=== PATIENT | female | born 1960 | race Caucasian/White ===

== ENCOUNTER 2016-07-14 11:55 | Inpatient (IN) ==
[2016-07-14] MEDS ORDERED: 0.9 % Sodium Chloride 1,000 ML ONE (12:12)
[2016-07-14] MEDS ORDERED: 0.9 % Sodium Chloride 1,000 ML IVC ONE ×2 (12:15→19:37)
[2016-07-14 13:14] LABS: Hematocrit 42.5 % (35.3-44.9); Hemoglobin 13.8 g/dL (11.5-15.4); Immature Granulocytes % 0.6 % (0-4); Lymphocytes % 21.4 %; Mean Corpuscular HGB Conc 32.5 g/dL (31.6-35.5); Mean Corpuscular Hemoglobin 29.1 pg (28.0-33.3); Mean Corpuscular Volume 89.5 fL (83.0-100.0); Mean Platelet Volume 9.6 fL (9.4-12.4); Monocytes % 13.1 %; Platelet Count 318 K/mcL (140-400); Red Blood Count 4.75 M/mcL (3.82-4.97); Red Cell Distribution Width 13.2 % (11.5-14.5); Segmented Neutrophils % 64.2 %
[2016-07-14 13:15] LABS: Basophils # 0.1 K/mcL (0.0-0.2); Basophils % 0.5 %; Eosinophils % 0.2 %; Monocytes # 3.1 K/mcL (0.0-1.3)
--- NOTE | 2016-07-14 13:17 | Emergency Department Note ---
Disposition Clinical Impression: Weakness, Bradycardia UTI (urinary tract infection) Qualifiers: Urinary tract infection type: acute cystitis Hematuria presence: without hematuria Qualified Code(s): N30.00 - Acute cystitis without hematuria Disposition: Admitted As Inpatient Condition: Fair Referrals: Geena Pedersen MD [Primary Care Provider] - Time of Disposition: 15:34 General Adult HPI - General Chief complaint: ED Weakness Stated complaint: weakness Source: patient, EMS Limitations: no limitations Nursing Notes Reviewed: Yes Vital Signs Reviewed: Yes - History of Present Illness HPI Narrative: 55-year-old comes in complaining of generalized weakness difficulty getting around. Family member states that the symptoms began 2 days ago. This morning she had an episode where she became unresponsive on the toilet he picked her up and she seemed to stricter muscles and arched her back. Patient does not localize weakness to one side or the other she's also very dizzy. Onset (ago): day(s) (2) Location: other (Generalized) Pain Scale: 0 Associated symptoms: Reports: weakness (Generalized) - Related Data Home Medications Medication Instructions Recorded Confirmed Albuterol Sulfate [Proair 2 puff IH QID 10/12/14 07/27/15 Respiclick] Aspirin 81 mg PO DAILY 10/12/14 07/27/15 Budesonide/Formoterol 160/4.5 2 puff IH BIDR 10/12/14 07/27/15 [Symbicort] Cetirizine HCl [Zyrtec] 10 mg PO DAILY 10/12/14 07/27/15 ClonazePAM [Klonopin] 0.5 mg PO TID 10/12/14 07/27/15 Colestipol HCl [Colestid] 1 gm PO TID 10/12/14 07/27/15 Diltiazem CD (24hr) [Cardizem CD] 120 mg PO DAILY 10/12/14 07/27/15 Gabapentin [Neurontin] 900 mg PO TID 10/12/14 07/27/15 Isosorbide MONOnitrate (24 HR) 30 mg PO DAILY 10/12/14 07/27/15 [Imdur] Ketotifen Fumarate [Zaditor] 1 drop OP BID PRN 10/12/14 07/27/15 Mirtazapine [Remeron] 30 mg PO HS 10/12/14 07/27/15 Montelukast [Singulair] 10 mg PO DAILY 10/12/14 07/27/15 Omeprazole [PriLOSEC] 20 mg PO BIDAC 10/12/14 07/27/15 Ondansetron [Zofran] 8 mg PO Q8H PRN 10/12/14 07/27/15 Oxygen 2 l NS DAILY 10/12/14 07/27/15 Quetiapine Fumarate [Seroquel] 300 mg PO HS 10/12/14 07/27/15 Rosuvastatin [Crestor] 40 mg PO HS 10/12/14 07/27/15 Sucralfate [Carafate] 1 gm PO BID 10/12/14 07/27/15 Zolpidem [Ambien] 10 mg PO HS 10/12/14 07/27/15 Albuterol Neb [Proventil Neb] 2.5 mg IH Q4HR 07/27/15 07/27/15 Ergocalciferol (VITAMIN D2) 2,000 unit PO DAILY 07/27/15 07/27/15 [Vitamin D2] Tizanidine HCl [Zanaflex] 8 mg PO QID 07/27/15 07/27/15 Previous Rx's Medication Instructions Recorded Nicotine Patch [Nicoderm] 14 mg TD DAILY #30 patch.td24 07/27/15 Amoxicillin 500 mg PO BID 7 Days 11/12/15 HYDROcodone/Acet 5/325 mg [[place] 1 tab PO Q6H #6 tab 11/30/15 5-325 mg] Allergies Allergy/AdvReac Type Severity Reaction Status Date / Time baclofen Allergy Irritable Verified 11/12/15 19:40 escitalopram [From Lexapro] Allergy See Verified 11/12/15 19:40 Comments fluoxetine [From Prozac] Allergy Itching Verified 11/12/15 19:40 Sulfa (Sulfonamide Allergy See Verified 11/12/15 19:40 Antibiotics) Comments tramadol [From Ultram] Allergy Seizure Verified 11/12/15 19:41 trazodone Allergy Irritable Verified 11/12/15 19:40 venlafaxine [From Effexor] Allergy See Verified 11/12/15 19:40 Comments Constitutional: Denies: fever, chills, weakness, weight change Eyes: Denies: eye pain, eye discharge, vision change ENT ED: Denies: ear pain, throat pain, dental pain, hearing loss, epistaxis, congestion, dysphagia Cardiovascular: Denies: chest pain, palpitations, dyspnea on exertion, edema, syncope Respiratory: Denies: cough, dyspnea, wheezes, hemoptysis, stridor Gastrointestinal: Denies: abdominal pain, nausea, vomiting, diarrhea, constipation, hematemesis, melena, hematochezia Genitourinary: Denies: dysuria, frequency, hematuria, discharge Musculoskeletal: Denies: back pain, neck pain, arthralgia, myalgia Integumentary: Denies: rash, abrasion, lesions Neurological: Reports: weakness (Generalized). Denies: headache, numbness, paresthesias, confusion, abnormal gait, vertigo Psychiatric: Denies: anxiety, depression, suicidal thoughts, homicidal thoughts , auditory hallucinations, visual hallucinations Endocrine: Reports: fatigue Hematological/Lymphatic: Denies: easy bleeding, easy bruising Allergic/Immunologic: Denies: facial swelling, urticaria Past Medical History - Past Medical History Medical history: Reports: COPD, coronary artery disease, GERD, hyperlipidemia, migraine, seizures, TIA Surgical history: Reports: appendectomy, cholecystectomy, orthopedic, other Psychiatric history: Reports: anxiety, depression EXECUTIVE ACCOUNT MANAGER history: Reports: no EXECUTIVE ACCOUNT MANAGER history - Social History Smoking Status: Current every day smoker Smokeless Tobacco Status: No Alcohol use: Reports: none Drug use: Reports: none Physical Exam - General Limitations: no limitations General appearance: alert, in no apparent distress - Head Head exam: atraumatic, normocephalic, normal inspection - Eye Eye exam: Present: normal appearance, PERRL, EOMI - ENT ENT exam: normal exam, normal oropharynx, mucous membranes moist - Neck Neck exam: Present: normal inspection, full ROM, trachea midline - Chest Chest inspection: Present: normal inspection, symmetric chest wall rise - Respiratory Respiratory exam: Present: normal lung sounds bilaterally - Cardiovascular Cardiovascular exam: Present: regular rate, bradycardia - Abdominal Exam Abdominal exam: Present: soft, Non-Tender. Absent: tenderness, distention, guarding, rebound, rigidity - Extremities Exam Extremities exam: Present: normal inspection, full ROM. Absent: tenderness, pedal edema - Expanded Lower Extremity Exam Neurovascular/Tendon exam: Absent: motor deficit, sensory deficit, tendon deficit Gait: observed and normal - Back Exam Back exam: Present: normal inspection, full ROM. Absent: tenderness - Neurological Exam Neurological exam: Present: alert, oriented X3 - Psychiatric Psychiatric exam: Present: normal affect, normal mood - Skin Skin exam: Present: warm, dry, intact, normal color Course - Reevaluation(s) Reevaluation #1: 55-year-old had a period of weakness generally that started the last day or 2. Patient had an episode on the toilet today which she arched her back him tensed her muscles family states that she wasn't responsive at that time she has had evaluation by neurology who feels she may be having a seizure. We did get a reevaluation and gave her fluids. The patient improved after fluids although her heart rate remained in the mid 40s blood pressure was okay. White count 23.4 some clear Zaida related to a UTI that she has a versus emargination secondary to seizure. He admitted for further evaluation. Time: 15:33 - Consultations Consultation #1: Discussed with , admit. Time: 15:34 Vital Signs Temperature 97.5 F L 07/14/16 12:00 Pulse Rate 45 07/14/16 12:00 Respiratory Rate 14 07/14/16 12:00 Blood Pressure 97/62 07/14/16 12:00 O2 Sat by Pulse Oximetry 95 07/14/16 12:00 Temperature 97.5 F L 07/14/16 12:00 Pulse Rate 47 07/14/16 12:51 Respiratory Rate 14 07/14/16 12:51 Blood Pressure 93/47 07/14/16 12:51 O2 Sat by Pulse Oximetry 96 07/14/16 12:51 Oxygen Delivery Oxygen Delivery Room Air Medical Decision Making - Lab Data Lab results reviewed: Yes I reviewed the patient's lab results. Result diagrams: 07/14/16 13:06 07/14/16 13:06 Lab Results 07/14/16 07/14/16 07/14/16 Range/Units 12:04 13:06 13:06 WBC 23.4 H (4.3-11.1) K/mcL RBC 4.75 (3.82-4.97) M/mcL Hgb 13.8 (11.5-15.4) g/dL Hct 42.5 (35.3-44.9) % MCV 89.5 (83.0-100.0) fL MCH 29.1 (28.0-33.3) pg MCHC 32.5 (31.6-35.5) g/dL RDW 13.2 (11.5-14.5) % Plt Count 318 (140-400) K/mcL MPV 9.6 (9.4-12.4) fL Immature Gran % 0.6 (0-4) % Seg Neutrophils % 64.2 % Lymphocytes % 21.4 % Monocytes % 13.1 % Eosinophils % 0.2 % Basophils % 0.5 % Neutrophils # 15.0 H (1.6-8.9) K/mcL Lymphocytes # 5.0 H (0.6-4.6) K/mcL Monocytes # 3.1 H (0.0-1.3) K/mcL Eosinophils # 0.0 (0.0-0.6) K/mcL Basophils # 0.1 (0.0-0.2) K/mcL PT 16.8 H (9.4-12.1) Seconds INR 1.5 APTT (26.0-36.0) Seconds Sodium (136-145) mEq/L Potassium (3.5-4.5) mEq/L Chloride (98-109) mEq/L Carbon Dioxide (19-29) mEq/L BUN (7-20) mg/dL Creatinine (0.57-1.11) mg/dL Est GFR ( Amer) (> 60) Est GFR (Non-Af Amer) (> 60) BUN/Creatinine Ratio (6-26) Glucose (70-99) mg/dL POC Glucose 170 H (58-89) Calculated Osmolality (280-300) Calcium (8.6-10.8) mg/dL Total Bilirubin (0.2-1.2) mg/dL Direct Bilirubin (0.0-0.5) mg/dL Indirect Bilirubin (0.0-1.2) mg/dL AST (5-34) Units/L ALT (0-55) Units/L Alkaline Phosphatase (38-126) Units/L Ammonia (18-72) mcmol/L Troponin I (0-0.03) ng/mL Serum Total Protein (6.0-8.3) g/dL Albumin (3.5-5.0) g/dL Globulin (2.4-3.5) g/dL Albumin/Globulin Ratio (1.1-2.2) Amylase (25-125) Units/L Lipase (8-78) Units/L TSH (0.350-4.840) mcIU/mL Ur Specimen Adequacy Urine Color (Yellow) Urine Clarity (Clear) Urine pH (5.0-8.0) pH Units Ur Specific [place] (1.010-1.025) Urine Protein (Neg-Trace) mg/dL Urine Glucose (UA) (Normal) mg/dL Urine Ketones (Negative) mg/dL Urine Blood (Negative) Urine Nitrite (Negative) Urine Bilirubin (Negative) Urine Urobilinogen (Normal) mg/dL Ur Leukocyte Esterase (Negative) Urine Microscopic RBC (0-3) per hpf Urine Microscopic WBC (0-3) per hpf Ur Squamous Epith Cells (None-Few) per lpf Urine Bacteria (None-Few) per hpf Hyaline Casts (None-Few) per lpf Ur Culture Indicated? (NO) Urine Opiates Screen (Sxunad=828) ng/mL Ur Barbiturates Screen (Odgccb=932) ng/mL Ur Phencyclidine Scrn (Cutoff=25) ng/mL Ur Amphetamines Screen (Fvtctr=3130) ng/mL U Benzodiazepines Scrn (Avyhbb=327) ng/mL Urine Cocaine Screen (Cutoff= 300) ng/mL U Marijuana (THC) Screen (Cutoff = 50) ng/mL Ethyl Alcohol (0-10) mg/dL 07/14/16 07/14/16 07/14/16 Range/Units 13:06 13:06 13:06 WBC (4.3-11.1) K/mcL RBC (3.82-4.97) M/mcL Hgb (11.5-15.4) g/dL Hct (35.3-44.9) % MCV (83.0-100.0) fL MCH (28.0-33.3) pg MCHC (31.6-35.5) g/dL RDW (11.5-14.5) % Plt Count (140-400) K/mcL MPV (9.4-12.4) fL Immature Gran % (0-4) % Seg Neutrophils % % Lymphocytes % % Monocytes % % Eosinophils % % Basophils % % Neutrophils # (1.6-8.9) K/mcL Lymphocytes # (0.6-4.6) K/mcL Monocytes # (0.0-1.3) K/mcL Eosinophils # (0.0-0.6) K/mcL Basophils # (0.0-0.2) K/mcL PT (9.4-12.1) Seconds INR APTT 32.8 (26.0-36.0) Seconds Sodium 135 L (136-145) mEq/L Potassium 3.6 (3.5-4.5) mEq/L Chloride 101 (98-109) mEq/L Carbon Dioxide 23 (19-29) mEq/L BUN 9 (7-20) mg/dL Creatinine 1.03 (0.57-1.11) mg/dL Est GFR ( Amer) > 60 (> 60) Est GFR (Non-Af Amer) 56 L (> 60) BUN/Creatinine Ratio 9 (6-26) Glucose 176 H (70-99) mg/dL POC Glucose (58-89) Calculated Osmolality 283 (280-300) Calcium 9.7 (8.6-10.8) mg/dL Total Bilirubin 0.6 (0.2-1.2) mg/dL Direct Bilirubin (0.0-0.5) mg/dL Indirect Bilirubin (0.0-1.2) mg/dL AST 10 (5-34) Units/L ALT 8 (0-55) Units/L Alkaline Phosphatase 47 (38-126) Units/L Ammonia (18-72) mcmol/L Troponin I 0.01 (0-0.03) ng/mL Serum Total Protein 8.2 (6.0-8.3) g/dL Albumin 3.1 L (3.5-5.0) g/dL Globulin 5.1 H (2.4-3.5) g/dL Albumin/Globulin Ratio 0.6 L (1.1-2.2) Amylase (25-125) Units/L Lipase (8-78) Units/L TSH 0.827 (0.350-4.840) mcIU/mL Ur Specimen Adequacy Urine Color (Yellow) Urine Clarity (Clear) Urine pH (5.0-8.0) pH Units Ur Specific [place] (1.010-1.025) Urine Protein (Neg-Trace) mg/dL Urine Glucose (UA) (Normal) mg/dL Urine Ketones (Negative) mg/dL Urine Blood (Negative) Urine Nitrite (Negative) Urine Bilirubin (Negative) Urine Urobilinogen (Normal) mg/dL Ur Leukocyte Esterase (Negative) Urine Microscopic RBC (0-3) per hpf Urine Microscopic WBC (0-3) per hpf Ur Squamous Epith Cells (None-Few) per lpf Urine Bacteria (None-Few) per hpf Hyaline Casts (None-Few) per lpf Ur Culture Indicated? (NO) Urine Opiates Screen (Ryokmi=373) ng/mL Ur Barbiturates Screen (Pthido=318) ng/mL Ur Phencyclidine Scrn (Cutoff=25) ng/mL Ur Amphetamines Screen (Tgdrgn=1024) ng/mL U Benzodiazepines Scrn (Snewgy=427) ng/mL Urine Cocaine Screen (Cutoff= 300) ng/mL U Marijuana (THC) Screen (Cutoff = 50) ng/mL Ethyl Alcohol (0-10) mg/dL 07/14/16 07/14/16 07/14/16 Range/Units 13:33 13:33 14:06 WBC (4.3-11.1) K/mcL RBC (3.82-4.97) M/mcL Hgb (11.5-15.4) g/dL Hct (35.3-44.9) % MCV (83.0-100.0) fL MCH (28.0-33.3) pg MCHC (31.6-35.5) g/dL RDW (11.5-14.5) % Plt Count (140-400) K/mcL MPV (9.4-12.4) fL Immature Gran % (0-4) % Seg Neutrophils % % Lymphocytes % % Monocytes % % Eosinophils % % Basophils % % Neutrophils # (1.6-8.9) K/mcL Lymphocytes # (0.6-4.6) K/mcL Monocytes # (0.0-1.3) K/mcL Eosinophils # (0.0-0.6) K/mcL Basophils # (0.0-0.2) K/mcL PT (9.4-12.1) Seconds INR APTT (26.0-36.0) Seconds Sodium (136-145) mEq/L Potassium (3.5-4.5) mEq/L Chloride (98-109) mEq/L Carbon Dioxide (19-29) mEq/L BUN (7-20) mg/dL Creatinine (0.57-1.11) mg/dL Est GFR ( Amer) (> 60) Est GFR (Non-Af Amer) (> 60) BUN/Creatinine Ratio (6-26) Glucose (70-99) mg/dL POC Glucose (58-89) Calculated Osmolality (280-300) Calcium (8.6-10.8) mg/dL Total Bilirubin 0.7 (0.2-1.2) mg/dL Direct Bilirubin 0.2 (0.0-0.5) mg/dL Indirect Bilirubin 0.5 (0.0-1.2) mg/dL AST 11 (5-34) Units/L ALT 9 (0-55) Units/L Alkaline Phosphatase 48 (38-126) Units/L Ammonia 24 (18-72) mcmol/L Troponin I (0-0.03) ng/mL Serum Total Protein 7.9 (6.0-8.3) g/dL Albumin 3.1 L (3.5-5.0) g/dL Globulin 4.8 H (2.4-3.5) g/dL Albumin/Globulin Ratio 0.6 L (1.1-2.2) Amylase 32 (25-125) Units/L Lipase 25 (8-78) Units/L TSH (0.350-4.840) mcIU/mL Ur Specimen Adequacy See below A Urine Color Yellow (Yellow) Urine Clarity Hazy A (Clear) Urine pH 6.0 (5.0-8.0) pH Units Ur Specific [place] 1.008 L (1.010-1.025) Urine Protein 100 H (Neg-Trace) mg/dL Urine Glucose (UA) Normal (Normal) mg/dL Urine Ketones Negative (Negative) mg/dL Urine Blood Moderate H (Negative) Urine Nitrite Positive A (Negative) Urine Bilirubin Negative (Negative) Urine Urobilinogen Normal (Normal) mg/dL Ur Leukocyte Esterase Large H (Negative) Urine Microscopic RBC 0-3 (0-3) per hpf Urine Microscopic WBC 50-100 H (0-3) per hpf Ur Squamous Epith Cells Moderate H (None-Few) per lpf Urine Bacteria Many H (None-Few) per hpf Hyaline Casts None Seen (None-Few) per lpf Ur Culture Indicated? YES A (NO) Urine Opiates Screen (Coykch=470) ng/mL Ur Barbiturates Screen (Dxlfgk=088) ng/mL Ur Phencyclidine Scrn (Cutoff=25) ng/mL Ur Amphetamines Screen (Vxmbhb=5332) ng/mL U Benzodiazepines Scrn (Ixwcob=451) ng/mL Urine Cocaine Screen (Cutoff= 300) ng/mL U Marijuana (THC) Screen (Cutoff = 50) ng/mL Ethyl Alcohol < 10 (0-10) mg/dL 07/14/16 Range/Units 14:06 WBC (4.3-11.1) K/mcL RBC (3.82-4.97) M/mcL Hgb (11.5-15.4) g/dL Hct (35.3-44.9) % MCV (83.0-100.0) fL MCH (28.0-33.3) pg MCHC (31.6-35.5) g/dL RDW (11.5-14.5) % Plt Count (140-400) K/mcL MPV (9.4-12.4) fL Immature Gran % (0-4) % Seg Neutrophils % % Lymphocytes % % Monocytes % % Eosinophils % % Basophils % % Neutrophils # (1.6-8.9) K/mcL Lymphocytes # (0.6-4.6) K/mcL Monocytes # (0.0-1.3) K/mcL Eosinophils # (0.0-0.6) K/mcL Basophils # (0.0-0.2) K/mcL PT (9.4-12.1) Seconds INR APTT (26.0-36.0) Seconds Sodium (136-145) mEq/L Potassium (3.5-4.5) mEq/L Chloride (98-109) mEq/L Carbon Dioxide (19-29) mEq/L BUN (7-20) mg/dL Creatinine (0.57-1.11) mg/dL Est GFR ( Amer) (> 60) Est GFR (Non-Af Amer) (> 60) BUN/Creatinine Ratio (6-26) Glucose (70-99) mg/dL POC Glucose (58-89) Calculated Osmolality (280-300) Calcium (8.6-10.8) mg/dL Total Bilirubin (0.2-1.2) mg/dL Direct Bilirubin (0.0-0.5) mg/dL Indirect Bilirubin (0.0-1.2) mg/dL AST (5-34) Units/L ALT (0-55) Units/L Alkaline Phosphatase (38-126) Units/L Ammonia (18-72) mcmol/L Troponin I (0-0.03) ng/mL Serum Total Protein (6.0-8.3) g/dL Albumin (3.5-5.0) g/dL Globulin (2.4-3.5) g/dL Albumin/Globulin Ratio (1.1-2.2) Amylase (25-125) Units/L Lipase (8-78) Units/L TSH (0.350-4.840) mcIU/mL Ur Specimen Adequacy Urine Color (Yellow) Urine Clarity (Clear) Urine pH (5.0-8.0) pH Units Ur Specific [place] (1.010-1.025) Urine Protein (Neg-Trace) mg/dL Urine Glucose (UA) (Normal) mg/dL Urine Ketones (Negative) mg/dL Urine Blood (Negative) Urine Nitrite (Negative) Urine Bilirubin (Negative) Urine Urobilinogen (Normal) mg/dL Ur Leukocyte Esterase (Negative) Urine Microscopic RBC (0-3) per hpf Urine Microscopic WBC (0-3) per hpf Ur Squamous Epith Cells (None-Few) per lpf Urine Bacteria (None-Few) per hpf Hyaline Casts (None-Few) per lpf Ur Culture Indicated? (NO) Urine Opiates Screen Negative (Ccqdbz=632) ng/mL Ur Barbiturates Screen Negative (Ceoaaz=357) ng/mL Ur Phencyclidine Scrn Negative (Cutoff=25) ng/mL Ur Amphetamines Screen Negative (Tgvgbu=8180) ng/mL U Benzodiazepines Scrn Negative (Pmmtrb=040) ng/mL Urine Cocaine Screen Negative (Cutoff= 300) ng/mL U Marijuana (THC) Screen Negative (Cutoff = 50) ng/mL Ethyl Alcohol (0-10) mg/dL - Radiology Data Radiology results reviewed: Yes I reviewed the patient's radiology results. Chest X-Ray 07/14/16 12:15 IMPRESSION: 1. No acute cardiopulmonary findings. 2. 1.3 cm nodular opacity in medial right lung base likely corresponds to calcification anterior to the heart seen on the prior CT. D/ / Alicia Bearden MD / Alicia Bearden MD Interpreting Provider: Alicia Bearden MD Head CT 07/14/16 12:16 IMPRESSION: No acute intracranial abnormality. D/ / John Landis MD / John Landis MD Interpreting Provider: John Landis MD Stroke Scale - Level of Consciousness LOC: Alert - LOC Questions LOC Questions: Answers both correctly - LOC Commands LOC Commands: Performs both correctly - Best Gaze Best Gaze: Normal - Visual Visual: No visual loss - Facial Palsy Facial Palsy: Normal - Motor Arms Motor Arm-Left: No drift for 10 seconds Motor Arm-Right: No drift for 10 seconds - Motor Legs Motor Leg-Left: No drift for 5 seconds Motor Leg-Right: No drift for 5 seconds - Limb Ataxia Limb Ataxia: Normal, No Ataxia - Sensory Sensory: Normal - Best Language Best Language: No aphasia - Dysarthria Dysarthria: Normal - Extinction and Inattention Extinction and Inattention: Normal - NIHSS Total Score NIHSS Total Score: 0
[2016-07-14 13:22] LABS: INR 1.5; Prothrombin Time 16.8 Seconds (9.4-12.1)
[2016-07-14 13:28] LABS: Alanine Aminotransferase 8 Units/L (0-55); Albumin 3.1 g/dL (3.5-5.0); Albumin/Globulin Ratio 0.6 (1.1-2.2); Alkaline Phosphatase 47 Units/L (38-126); Aspartate Amino Transferase 10 Units/L (5-34); BUN/Creatinine Ratio 9 (6-26); Bilirubin,Total 0.6 mg/dL (0.2-1.2); Blood Urea Nitrogen 9 mg/dL (7-20); Calcium 9.7 mg/dL (8.6-10.8); Carbon Dioxide 23 mEq/L (19-29); Chloride 101 mEq/L (98-109); Globulin 5.1 g/dL (2.4-3.5); Glucose 176 mg/dL (70-99); Osmolality,Calculated 283 (280-300); Potassium 3.6 mEq/L (3.5-4.5); Sodium 135 mEq/L (136-145); Total Protein 8.2 g/dL (6.0-8.3); eGFR For African Americans > 60 (> 60); eGFR For Non-African Americans 56 (> 60)
[2016-07-14 13:50] LABS: Thyroid Stimulating Hormone 0.827 mcIU/mL (0.350-4.840)
[2016-07-14 13:58] LABS: Alanine Aminotransferase 9 Units/L (0-55); Albumin 3.1 g/dL (3.5-5.0); Albumin/Globulin Ratio 0.6 (1.1-2.2); Alkaline Phosphatase 48 Units/L (38-126); Amylase 32 Units/L (25-125); Aspartate Amino Transferase 11 Units/L (5-34); Bilirubin,Direct 0.2 mg/dL (0.0-0.5); Bilirubin,Indirect 0.5 mg/dL (0.0-1.2); Bilirubin,Total 0.7 mg/dL (0.2-1.2); Globulin 4.8 g/dL (2.4-3.5); Lipase 25 Units/L (8-78); Total Protein 7.9 g/dL (6.0-8.3)
[2016-07-14 14:12] LABS: Ethanol < 10 mg/dL (0-10)
[2016-07-14 14:18] LABS: Bilirubin,Urine Negative (Negative); Blood,Urine Moderate (Negative); Color,Urine Yellow (Yellow); Glucose,Urine (UA) Normal (Normal); Ketones,Urine Negative (Negative); Leukocyte Esterase,Urine Large (Negative); Nitrite,Urine Positive (Negative); Protein,Urine 100 mg/dL (Neg-Trace); Specific Gravity,Urine 1.008 (1.010-1.025); Urobilinogen,Urine Normal (Normal)
[2016-07-14 14:23] LABS: Amphetamine Screen,Urine Negative ng/mL (Cutoff=1000); Bacteria,Urine Many per hpf (None-Few); Barbiturate Screen,Urine Negative ng/mL (Cutoff=200); Benzodiazepines Screen,Urine Negative ng/mL (Cutoff=200); Cannabinoid Screen,Urine Negative ng/mL (Cutoff = 50); Cocaine Screen,Urine Negative ng/mL (Cutoff= 300); Hyaline Casts,Urine None Seen per lpf (None-Few); Opiate Screen,Urine Negative ng/mL (Cutoff=300); Phencyclidine Screen,Urine Negative ng/mL (Cutoff=25); RBC,Urine 0-3 per hpf (0-3); Squamous Epithelial Cell,Urine Moderate per lpf (None-Few); WBC,Urine 50-100 per hpf (0-3)
[2016-07-14 14:24] LABS: Clarity,Urine Hazy (Clear)
[2016-07-14] MEDS: 0.9 % Sodium Chloride 1,000 ML IVC SCH (16:12)
[2016-07-14] MEDS ORDERED: Naloxone 0.4 MG/ML INJ IVP PRN (17:26)
--- NOTE | 2016-07-14 17:29 | Electrocardiograph Report ---
[place] [address] Test Date: 2016-07-14 Pat Name: Geetha Daniels Department: 104 Room: 2NE22 Gender: F Promotional Demonstrator: SERAFIN : 1960 Requested By: González Muñoz Order Number: [id number] Reading MD: Mindi Leggett Measurements Intervals [place] Rate: 43 P: 61 [place]: 109 QRS: 38 QRSD: 78 T: 57 QT: 461 QTc: 409 Interpretive Statements SINUS BRADYCARDIA WITH SHORT [place] INTERVAL NONSPECIFIC T-WAVE ABNORMALITY Electronically Signed On 07-14-2016 17:27:24 EDT by Mindi Leggett
[2016-07-14] MEDS ORDERED: clonazePAM 0.5 MG TABLET PO PRN (17:30)
[2016-07-14] MEDS ORDERED: NON-FORMULARY MEDICATION 1 EACH EACH (Oxygen [Oxygen] 2 L) NS SCH (17:30)
--- NOTE | 2016-07-14 18:17 | Internal Med History&Physical ---
Date of Encounter: 07/16/16 Time of Encounter: 18:14 Assessment and Plan (1) UTI (urinary tract infection) Current visit: Yes Status: Acute History of urinary tract infection multiple times in the past. Present admission is likely for the acute urinary tract infection. Previous admission in July 2015 for urinary tract infection: Escherichia coli: Pansensitive strain Plan: Admit as inpatient. IV fluids 100 mL/h. Intravenous ceftriaxone 1 g every 24 hours Urine culture/blood culture prior to antibiotics. Close monitoring Qualifiers: Urinary tract infection type: acute cystitis Hematuria presence: without hematuria Qualified Code(s): N30.00 - Acute cystitis without hematuria (2) COPD (chronic obstructive pulmonary disease) Current visit: No Status: Acute Stable COPD and has a follow-up with the pulmonology Qualifiers: COPD type: unspecified COPD Qualified Code(s): J44.9 - Chronic obstructive pulmonary disease, unspecified (3) Hypertension Current visit: No Status: Acute At this point patient is hypotensive and we will hold all antihypertensive medication. Qualifiers: Hypertension type: essential hypertension Qualified Code(s): I10 - Essential (primary) hypertension (4) CAD (coronary artery disease) Current visit: No Status: Chronic Will resume home medication Qualifiers: Coronary Disease-Associated Artery/Lesion type: [place] artery [place] vs. transplanted heart: [place] heart Associated angina: without angina Qualified Code(s): I25.10 - Atherosclerotic heart disease of [place] coronary artery without angina pectoris (5) Bradycardia Current visit: Yes Status: Acute Close observation (6) DVT prophylaxis Current visit: Yes Status: Acute Heparin Medical decision making: This patient has moderate to severe risk of worsening in spite of being on appropriate medication due to underlying illness. Internal Medicine - H&P: HPI Chief complaint: fall Admitted From: Emergency Dept Plans for Post Hospital Care: Home History of present illness: PCP : Geena Pandey PMH: COPD,GERD, Anxiety, HPI: Patient is ongoing dysuria, burning sensation, difficulty in micturition and worsening flank pain for more than 3 days. Patient claims that she had multiple falls since yesterday. Patient had a fall this morning. Patient denies chest pain, shortness of breath, abdominal distention, abdominal pain or diarrhea. Patient was brought to the emergency room in view of the frequent falls. Emergency room workup: Patient was evaluated in the emergency room. CT scan of the head was done which was negative for any acute event. Reason for admission: Frequent falls likely secondary to sepsis. Source of sepsis: Possible urinary tract Family history: Noncontributory Past Med Surg Social Fam HX - Past Medical History Medical history: COPD, coronary artery disease, GERD, hyperlipidemia, migraine, seizures, TIA Psychiatric history: anxiety, depression - Past Surgical History Surgical History: appendectomy, cholecystectomy, orthopedic, other - Social History Smoking Status: Current every day smoker Smokeless Tobacco Status: No Alcohol use: none Drug use: none - Family History Mother Living Status: Hx Family Cardiac Disorders: Yes Internal Medicine - H&P: Meds Budesonide/Formoterol 160/4.5 [Symbicort] 2 puff IH BIDR 10/12/14 [History] Cetirizine HCl [Zyrtec] 10 mg PO DAILY 10/12/14 [History] ClonazePAM [Klonopin] 0.5 mg PO Q6H PRN 10/12/14 [History] Diltiazem CD (24hr) [Cardizem CD] 120 mg PO DAILY 10/12/14 [History] Gabapentin [Neurontin] 900 mg PO TID 10/12/14 [History] Montelukast [Singulair] 10 mg PO DAILY 10/12/14 [History] Oxygen 2 l NS AD 10/12/14 [History] Rosuvastatin [Crestor] 40 mg PO HS 10/12/14 [History] Zolpidem [Ambien] 10 mg PO HS 10/12/14 [History] Albuterol Neb [Proventil Neb] 2.5 mg IH Q4HR PRN 07/27/15 [History] Tizanidine HCl [Zanaflex] 8 mg PO QID 07/27/15 [History] Albuterol Sulfate [Ventolin Hfa] 2 puff IH Q4H PRN 07/14/16 [History] Dicyclomine [Bentyl] 10 mg PO TIDAC 07/14/16 [History] Mirtazapine [Remeron] 45 mg PO HS 07/14/16 [History] Ondansetron [Zofran ODT] 8 mg SL Q8H PRN 07/14/16 [History] Quetiapine Fumarate [Seroquel] 400 mg PO HS 07/14/16 [History] Tiotropium [place] [Spiriva Respimat] 2 puff IH DAILY 07/14/16 [History] Allergies baclofen Allergy (Verified 11/12/15 19:40) Irritable escitalopram [From Lexapro] Allergy (Verified 11/12/15 19:40) See Comments suicidal fluoxetine [From Prozac] Allergy (Verified 11/12/15 19:40) Itching Sulfa (Sulfonamide Antibiotics) Allergy (Verified 11/12/15 19:40) See Comments shortness of breath tramadol [From Ultram] Allergy (Verified 11/12/15 19:41) Seizure trazodone Allergy (Verified 11/12/15 19:40) Irritable venlafaxine [From Effexor] Allergy (Verified 11/12/15 19:40) See Comments suicidal All Systems PM: A 10-system review of systems was performed and is negative for pertinent findings except as documented above in the HPI. - Constitutional Constitutional: no chills, no fever(s), no night sweats - EENT Eyes: no change in vision, no discharge, no pain, no photophobia Ears: no ear discharge, no ear pain, no tinnitus Nose, mouth and throat: no dysphagia, no nasal discharge, no neck pain, no sore throat - Cardiovascular Cardiovascular ROS IM: no chest pain, no diaphoresis, no dyspnea, no lightheadedness, no palpitations, no syncope - Respiratory Respiratory: no cough, no dyspnea, no wheezing, no excessive phlegm production - Gastrointestinal Gastrointestinal: no abdominal pain, no diarrhea, no hematemesis, no hematochezia, no melena, no nausea, no vomiting - Genitourinary Genitourinary: no change in urinary stream, no dysuria, no flank pain, no hematuria - Musculoskeletal Musculoskeletal ROS IM: no numbness, no tingling - Integumentary Integumentary IM: no rash, no unusual bruising - Neurological Neurological ROS: no confusion, no convulsions, no focal weakness, no numbness, no tingling, no tremor(s) - Hematologic/Lymphatic Hematologic/Lymphatic: no easy bruising - Constitutional Vitals: Temp Pulse Resp BP Pulse Ox 97.5 F L 44 16 107/58 96 07/14/16 12:00 07/14/16 16:00 07/14/16 17:25 07/14/16 17:25 07/14/16 16:00 General appearance: Present: A&O X 3, pleasant, no acute distress, answers questions appropriately - Head Head exam: Present: atraumatic, normocephalic - Eye Eye exam: Present: PERRL, conjuntiva pink, sclera anicteric Pupils: Present: PERRL - Neck Neck exam general surgery: Present: supple, trachea midline. Absent: lymphadenopathy - Respiratory Respiratory exam: Present: CTAB. Absent: accessory muscle use, rales, rhonchi, wheezes - Cardiovascular Cardiovascular exam: Present: RRR, +S1, +S2. Absent: diastolic murmur, gallop, rubs, systolic murmur - GI/Abdominal GI/Abdominal exam: Present: normal bowel sounds, soft, no peritoneal signs. Absent: distended, tenderness - Extremities Exam Extremities exam: Present: warm, radial pulses palpable and symetrical. Absent : calf tenderness, cyanotic, pedal edema - Neurological Exam Neurological exam: Present: CN II-XII intact, oriented X3, no focal deficits. Absent: pronater drift, facial droop, speech deficit - Skin Skin exam: Present: dry, intact Internal Med - H&P Results - Labs CBC & Chem 7: 07/16/16 04:30 07/16/16 04:30
[2016-07-14] MEDS ORDERED: 0.9 % Sodium Chloride 500 ML IVC ONE (19:13)
[2016-07-14] MEDS: *HR* Heparin 5,000 UNIT/ML VIAL SQ SCH (19:40)
[2016-07-14] MEDS: Budesonide/Formoterol 160/4.5 MDI IH SCH (20:27)
[2016-07-14] MEDS: Mirtazapine 15 MG TABLET PO SCH (22:02)
[2016-07-14] MEDS: Gabapentin 300 MG CAPSULE PO SCH (22:02)
[2016-07-14] MEDS: tiZANidine 4 MG TABLET PO SCH (22:03)
[2016-07-15 01:44] LABS: Basophils # 0.1 K/mcL (0.0-0.2); Basophils % 0.4 %; Eosinophils # 0.1 K/mcL (0.0-0.6); Eosinophils % 0.8 %; Hematocrit 34.9 % (35.3-44.9); Immature Granulocytes % 0.4 % (0-4); Lymphocytes # 3.9 K/mcL (0.6-4.6); Lymphocytes % 28.6 %; Mean Corpuscular HGB Conc 31.8 g/dL (31.6-35.5); Mean Corpuscular Hemoglobin 29.1 pg (28.0-33.3); Mean Corpuscular Volume 91.6 fL (83.0-100.0); Mean Platelet Volume 10.1 fL (9.4-12.4); Monocytes # 1.3 K/mcL (0.0-1.3); Monocytes % 9.6 %; Neutrophils # 8.3 K/mcL (1.6-8.9); Platelet Count 240 K/mcL (140-400); Red Blood Count 3.81 M/mcL (3.82-4.97); Red Cell Distribution Width 13.5 % (11.5-14.5); Segmented Neutrophils % 60.2 %
[2016-07-15 01:45] LABS: Hemoglobin 11.1 g/dL (11.5-15.4)
[2016-07-15 02:05] LABS: Alanine Aminotransferase 7 Units/L (0-55); Albumin 2.6 g/dL (3.5-5.0); Albumin/Globulin Ratio 0.7 (1.1-2.2); Alkaline Phosphatase 39 Units/L (38-126); Aspartate Amino Transferase 12 Units/L (5-34); BUN/Creatinine Ratio 11 (6-26); Bilirubin,Total 0.4 mg/dL (0.2-1.2); Blood Urea Nitrogen 11 mg/dL (7-20); Carbon Dioxide 20 mEq/L (19-29); Chloride 111 mEq/L (98-109); Chol/HDL Ratio 14.9 (0-4.9); Cholesterol 119 mg/dL (< 200); Globulin 3.9 g/dL (2.4-3.5); Glucose 137 mg/dL (70-99); HDL Cholesterol 8 mg/dL (40-59); LDL Cholesterol,Calculated 45 mg/dL (0-99); Magnesium 1.9 mg/dL (1.6-2.6); Osmolality,Calculated 292 (280-300); Phosphorous 2.5 mg/dL (2.3-4.7); Potassium 3.1 mEq/L (3.5-4.5); Sodium 140 mEq/L (136-145); Triglycerides 328 mg/dL (< 150); eGFR For African Americans > 60 (> 60); eGFR For Non-African Americans 58 (> 60)
[2016-07-15 02:13] LABS: Calcium 7.9 mg/dL (8.6-10.8); Total Protein 6.5 g/dL (6.0-8.3)
[2016-07-15] MEDS: 0.9 % Sodium Chloride 1,000 ML IVC SCH ×4 (04:04→16:56)
[2016-07-15] MEDS: Acetaminophen 325 MG TABLET PO PRN ×2 (04:08→20:43)
[2016-07-15] MEDS: *HR* Heparin 5,000 UNIT/ML VIAL SQ SCH ×2 (04:08→16:56)
--- NOTE | 2016-07-15 05:47 | Event Note ---
Date of Encounter: 07/15/16 Time of Encounter: 05:41 At approximately 8PM I was notified by nursing staff of the patients blood pressure being low with MAPs in the 50s. I examined the patient and she was alert and oriented and having good urine output. Patient was given throughout the night with a total of 5Ls given. Patients blood pressure did not respond initially to fluid challenges but by the time she had received 5L her blood pressure responded appropriately. I was then alerted by nursing that the patient was having difficulty urinating so a bladder scan was performed which showed approximately 500cc of urine in the bladder so an order for a gaston catheter was placed.
[2016-07-15] MEDS: Diltiazem CD (24hr) 120 MG CAPSULE PO SCH (08:27)
[2016-07-15] MEDS: Gabapentin 300 MG CAPSULE PO SCH ×3 (08:28→22:21)
[2016-07-15] MEDS: tiZANidine 4 MG TABLET PO SCH ×4 (08:28→22:21)
[2016-07-15] MEDS: Budesonide/Formoterol 160/4.5 MDI IH SCH ×2 (10:04→22:13)
[2016-07-15] MEDS: Tiotropium 18 MCG inhalation IH SCH (10:05)
--- NOTE | 2016-07-15 16:34 | Internal Med Progress Note ---
Date of Encounter: 07/15/16 Time of Encounter: 16:30 - Assessment and plan (1) UTI (urinary tract infection) Current Visit: Yes Status: Acute Assessment and plan: History of urinary tract infection multiple times in the past. Present admission is likely for the acute urinary tract infection. Previous admission in July 2015 for urinary tract infection: Escherichia coli: Pansensitive strain Plan: Admit as inpatient. IV fluids 100 mL/h. Intravenous ceftriaxone 1 g every 24 hours Urine culture/blood culture prior to antibiotics. Close monitoring 07/15/2016 Urine culture : GNR on Ceftrixone Day 2 will continue same. close follow up Qualifiers: Urinary tract infection type: acute cystitis Hematuria presence: without hematuria Qualified Code(s): N30.00 - Acute cystitis without hematuria (2) COPD (chronic obstructive pulmonary disease) Current Visit: No Status: Acute Assessment and plan: stable COPD Qualifiers: COPD type: unspecified COPD Qualified Code(s): J44.9 - Chronic obstructive pulmonary disease, unspecified (3) Hypertension Current Visit: No Status: Acute Assessment and plan: well-controlled Qualifiers: Hypertension type: essential hypertension Qualified Code(s): I10 - Essential (primary) hypertension (4) CAD (coronary artery disease) Current Visit: No Status: Chronic Assessment and plan: denies chest pain Qualifiers: Coronary Disease-Associated Artery/Lesion type: [place] artery [place] vs. transplanted heart: [place] heart Associated angina: without angina Qualified Code(s): I25.10 - Atherosclerotic heart disease of [place] coronary artery without angina pectoris (5) Bradycardia Current Visit: Yes Status: Acute Assessment and plan: on BB (6) DVT prophylaxis Current Visit: Yes Status: Acute Assessment and plan: heparin - Subjective Interval history: patient seen and examined. Chart reviewed. patient denies abdominal pain, dysuria,increased frequency or vomiting - Constitutional Vitals: Temp Pulse Resp BP Pulse Ox 97.9 F 56 18 94/57 92 07/15/16 15:38 07/15/16 15:38 07/15/16 15:38 07/15/16 15:38 07/15/16 15:38 General appearance: Present: A&O X 3, pleasant, no acute distress, answers questions appropriately - Head Head exam: Present: atraumatic, normocephalic - Eye Eye exam: Present: PERRL, conjuntiva pink, sclera anicteric Pupils: Present: PERRL - Neck Neck exam general surgery: Present: supple, trachea midline. Absent: lymphadenopathy - Respiratory Respiratory exam: Present: CTAB. Absent: accessory muscle use, rales, rhonchi, wheezes - Cardiovascular Cardiovascular exam: Present: RRR, +S1, +S2. Absent: diastolic murmur, gallop, rubs, systolic murmur - GI/Abdominal GI/Abdominal exam: Present: normal bowel sounds, soft, no peritoneal signs. Absent: distended, tenderness - Extremities Exam Extremities exam: Present: warm, radial pulses palpable and symetrical. Absent : calf tenderness, cyanotic, pedal edema - Neurological Exam Neurological exam: Present: CN II-XII intact, oriented X3, no focal deficits. Absent: pronater drift, facial droop, speech deficit - Skin Skin exam: Present: dry, intact Internal Medicine: Result - Labs CBC & Chem 7: 07/15/16 01:10 07/15/16 01:10 - ABG Interpretation ABG results: PT/INR, D-dimer PT 16.8 Seconds (9.4-12.1) H 07/14/16 13:06 Consult Discharge Plan - Plan Additional Instructions: pcp requested Referrals: Geena Pedersen MD [Primary Care Provider] -
[2016-07-15] MEDS: Mirtazapine 15 MG TABLET PO SCH (22:21)
[2016-07-16 04:45] LABS: Basophils % 0.6 %; Eosinophils # 0.2 K/mcL (0.0-0.6); Eosinophils % 2.6 %; Hematocrit 31.7 % (35.3-44.9); Hemoglobin 10.2 g/dL (11.5-15.4); Immature Granulocytes % 0.5 % (0-4); Lymphocytes % 46.5 %; Mean Corpuscular HGB Conc 32.2 g/dL (31.6-35.5); Mean Corpuscular Hemoglobin 29.9 pg (28.0-33.3); Mean Platelet Volume 10.3 fL (9.4-12.4); Monocytes # 0.5 K/mcL (0.0-1.3); Monocytes % 7.4 %; Neutrophils # 2.8 K/mcL (1.6-8.9); Platelet Count 172 K/mcL (140-400); Red Blood Count 3.41 M/mcL (3.82-4.97); Red Cell Distribution Width 13.9 % (11.5-14.5); Segmented Neutrophils % 42.4 %
[2016-07-16 05:06] LABS: BUN/Creatinine Ratio 9 (6-26); Blood Urea Nitrogen 7 mg/dL (7-20); Carbon Dioxide 17 mEq/L (19-29); Chloride 120 mEq/L (98-109); Glucose 94 mg/dL (70-99); Osmolality,Calculated 302 (280-300); Potassium 2.9 mEq/L (3.5-4.5); Sodium 147 mEq/L (136-145); eGFR For African Americans > 60 (> 60); eGFR For Non-African Americans > 60 (> 60)
[2016-07-16] MEDS: Albuterol 2.5 MG/3 ML NEBULIZER IH PRN (06:10)
[2016-07-16] MEDS: *HR* Heparin 5,000 UNIT/ML VIAL SQ SCH ×2 (06:12→17:02)
[2016-07-16] MEDS: Budesonide/Formoterol 160/4.5 MDI IH SCH ×2 (07:48→21:56)
[2016-07-16] MEDS: Tiotropium 18 MCG inhalation IH SCH (07:48)
[2016-07-16] MEDS: tiZANidine 4 MG TABLET PO SCH (07:49)
[2016-07-16] MEDS: Diltiazem CD (24hr) 120 MG CAPSULE PO SCH (07:50)
[2016-07-16] MEDS: Gabapentin 300 MG CAPSULE PO SCH ×3 (07:50→21:26)
[2016-07-16] MEDS ORDERED: Potassium Chloride Elixir 20 MEQ/15 ML UDC PO ONE (11:12)
[2016-07-16] MEDS ORDERED: tiZANidine 4 MG TABLET PO PRN (11:14)
[2016-07-16] MEDS: 0.9 % Sodium Chloride 1,000 ML IVC SCH ×2 (12:30→23:32)
--- NOTE | 2016-07-16 14:13 | Internal Med Progress Note ---
Date of Encounter: 07/16/16 Time of Encounter: 14:11 - Assessment and plan (1) UTI (urinary tract infection) Current Visit: Yes Status: Acute Assessment and plan: History of urinary tract infection multiple times in the past. Present admission is likely for the acute urinary tract infection. Previous admission in July 2015 for urinary tract infection: Escherichia coli: Pansensitive strain Plan: Admit as inpatient. IV fluids 100 mL/h. Intravenous ceftriaxone 1 g every 24 hours Urine culture/blood culture prior to antibiotics. Close monitoring 07/15/2016 Urine culture : GNR on Ceftrixone Day 2 will continue same. close follow up 07/16/2016 Urine culture: Gram-negative [place]: Escherichia coli: Resistant to ceftriaxone The Escherichia coli is a sensitive to rest all antibiotics except ceftriaxone. We will change from ceftriaxone to ciprofloxacin 500 mg twice a day. Qualifiers: Urinary tract infection type: acute cystitis Hematuria presence: without hematuria Qualified Code(s): N30.00 - Acute cystitis without hematuria (2) Hypokalemia Current Visit: No Status: Acute Assessment and plan: Potassium is 2.9. We will replace potassium intravenously. Possible home tomorrow. (3) COPD (chronic obstructive pulmonary disease) Current Visit: No Status: Acute Assessment and plan: stable COPD Qualifiers: COPD type: unspecified COPD Qualified Code(s): J44.9 - Chronic obstructive pulmonary disease, unspecified (4) Hypertension Current Visit: No Status: Acute Assessment and plan: well-controlled Qualifiers: Hypertension type: essential hypertension Qualified Code(s): I10 - Essential (primary) hypertension (5) CAD (coronary artery disease) Current Visit: No Status: Chronic Assessment and plan: denies chest pain Qualifiers: Coronary Disease-Associated Artery/Lesion type: [place] artery [place] vs. transplanted heart: [place] heart Associated angina: without angina Qualified Code(s): I25.10 - Atherosclerotic heart disease of [place] coronary artery without angina pectoris (6) Bradycardia Current Visit: Yes Status: Acute Assessment and plan: Bradycardia resolved (7) DVT prophylaxis Current Visit: Yes Status: Acute Assessment and plan: heparin - Subjective Interval history: patient seen and examined. Chart reviewed. patient denies abdominal pain, dysuria,increased frequency or vomiting 07/16/2016 Patient seen and examined. Chart reviewed. Patient feels much better as compared to yesterday. Patient denies abdominal pain, dysuria, increased frequency or vomiting - Constitutional Vitals: Temp Pulse Resp BP Pulse Ox 98.4 F 81 15 103/62 94 07/16/16 11:33 07/16/16 11:33 07/16/16 11:33 07/16/16 11:33 07/16/16 11:33 General appearance: Present: A&O X 3, pleasant, no acute distress, answers questions appropriately - Head Head exam: Present: atraumatic, normocephalic - Eye Eye exam: Present: PERRL, conjuntiva pink, sclera anicteric Pupils: Present: PERRL - Neck Neck exam general surgery: Present: supple, trachea midline. Absent: lymphadenopathy - Respiratory Respiratory exam: Present: CTAB. Absent: accessory muscle use, rales, rhonchi, wheezes - Cardiovascular Cardiovascular exam: Present: RRR, +S1, +S2. Absent: diastolic murmur, gallop, rubs, systolic murmur - GI/Abdominal GI/Abdominal exam: Present: normal bowel sounds, soft, no peritoneal signs. Absent: distended, tenderness - Extremities Exam Extremities exam: Present: warm, radial pulses palpable and symetrical. Absent : calf tenderness, cyanotic, pedal edema - Neurological Exam Neurological exam: Present: CN II-XII intact, oriented X3, no focal deficits. Absent: pronater drift, facial droop, speech deficit - Skin Skin exam: Present: dry, intact Internal Medicine: Result - Labs CBC & Chem 7: 07/16/16 04:30 07/16/16 04:30 Labs: Short CBC 07/16/16 Range/Units 04:30 WBC 6.5 D (4.3-11.1) K/mcL Hgb 10.2 L (11.5-15.4) g/dL Hct 31.7 L (35.3-44.9) % Plt Count 172 (140-400) K/mcL Neutrophils # 2.8 (1.6-8.9) K/mcL BMP 07/16/16 04:30 Sodium 147 H Potassium 2.9 L Chloride 120 H Carbon Dioxide 17 L BUN 7 Creatinine 0.80 Glucose 94 Calcium 8.0 L - ABG Interpretation ABG results: PT/INR, D-dimer PT 16.8 Seconds (9.4-12.1) H 05/23/17 13:06 Consult Discharge Plan - Plan Additional Instructions: pcp requested Referrals: Geena Pedersen MD [Primary Care Provider] -
[2016-07-16] MEDS: Acetaminophen 325 MG TABLET PO PRN (15:06)
[2016-07-16] MEDS: Mirtazapine 15 MG TABLET PO SCH (21:25)
[2016-07-17] MEDS: *HR* Heparin 5,000 UNIT/ML VIAL SQ SCH ×2 (05:28→18:24)
[2016-07-17] MEDS: Tiotropium 18 MCG inhalation IH SCH (08:01)
[2016-07-17] MEDS: Budesonide/Formoterol 160/4.5 MDI IH SCH ×2 (08:01→20:30)
[2016-07-17] MEDS: Gabapentin 300 MG CAPSULE PO SCH ×3 (10:01→21:18)
[2016-07-17] MEDS: Diltiazem CD (24hr) 120 MG CAPSULE PO SCH (10:03)
--- NOTE | 2016-07-17 13:32 | Internal Med Progress Note ---
Date of Encounter: 07/17/16 Time of Encounter: 13:31 - Assessment and plan (1) UTI (urinary tract infection) Current Visit: Yes Status: Acute Assessment and plan: History of urinary tract infection multiple times in the past. Present admission is likely for the acute urinary tract infection. Previous admission in July 2015 for urinary tract infection: Escherichia coli: Pansensitive strain Plan: Admit as inpatient. IV fluids 100 mL/h. Intravenous ceftriaxone 1 g every 24 hours Urine culture/blood culture prior to antibiotics. Close monitoring 07/15/2016 Urine culture : GNR on Ceftrixone Day 2 will continue same. close follow up 07/16/2016 Urine culture: Gram-negative [place]: Escherichia coli: Resistant to ceftriaxone The Escherichia coli is a sensitive to rest all antibiotics except ceftriaxone. We will change from ceftriaxone to ciprofloxacin 500 mg twice a day. 07/17/2016 Patient still has occasional dysuria. Noted that she has recurrent urinary tract infection. We will get CT abdomen and pelvis with oral and IV contrast. Possible home in next 1-2 days Qualifiers: Urinary tract infection type: acute cystitis Hematuria presence: without hematuria Qualified Code(s): N30.00 - Acute cystitis without hematuria (2) COPD (chronic obstructive pulmonary disease) Current Visit: No Status: Acute Assessment and plan: stable COPD Qualifiers: COPD type: unspecified COPD Qualified Code(s): J44.9 - Chronic obstructive pulmonary disease, unspecified (3) Hypertension Current Visit: No Status: Acute Assessment and plan: well-controlled Qualifiers: Hypertension type: essential hypertension Qualified Code(s): I10 - Essential (primary) hypertension (4) CAD (coronary artery disease) Current Visit: No Status: Chronic Assessment and plan: denies chest pain Qualifiers: Coronary Disease-Associated Artery/Lesion type: [place] artery [place] vs. transplanted heart: [place] heart Associated angina: without angina Qualified Code(s): I25.10 - Atherosclerotic heart disease of [place] coronary artery without angina pectoris (5) Bradycardia Current Visit: Yes Status: Acute Assessment and plan: Bradycardia resolved (6) DVT prophylaxis Current Visit: Yes Status: Acute Assessment and plan: heparin - Subjective Interval history: patient seen and examined. Chart reviewed. patient denies abdominal pain, dysuria,increased frequency or vomiting 07/16/2016 Patient seen and examined. Chart reviewed. Patient feels much better as compared to yesterday. Patient denies abdominal pain, dysuria, increased frequency or vomiting 07/17/2016 Patient seen and examined. Chart reviewed. Patient feels much better as compared to yesterday. Patient denies abdominal pain, nausea or vomiting, - Constitutional Vitals: Temp Pulse Resp BP Pulse Ox 99 F 94 18 156/75 93 07/17/16 11:33 07/17/16 11:33 07/17/16 06:48 07/17/16 11:33 07/17/16 06:48 General appearance: Present: A&O X 3, pleasant, no acute distress, answers questions appropriately - Head Head exam: Present: atraumatic, normocephalic - Eye Eye exam: Present: PERRL, conjuntiva pink, sclera anicteric Pupils: Present: PERRL - Neck Neck exam general surgery: Present: supple, trachea midline. Absent: lymphadenopathy - Respiratory Respiratory exam: Present: CTAB. Absent: accessory muscle use, rales, rhonchi, wheezes - Cardiovascular Cardiovascular exam: Present: RRR, +S1, +S2. Absent: diastolic murmur, gallop, rubs, systolic murmur - GI/Abdominal GI/Abdominal exam: Present: normal bowel sounds, soft, no peritoneal signs. Absent: distended, tenderness - Extremities Exam Extremities exam: Present: warm, radial pulses palpable and symetrical. Absent : calf tenderness, cyanotic, pedal edema - Neurological Exam Neurological exam: Present: CN II-XII intact, oriented X3, no focal deficits. Absent: pronater drift, facial droop, speech deficit - Skin Skin exam: Present: dry, intact Internal Medicine: Result - Labs CBC & Chem 7: 07/16/16 04:30 07/16/16 04:30 - ABG Interpretation ABG results: PT/INR, D-dimer PT 16.8 Seconds (9.4-12.1) H 07/14/16 13:06 Consult Discharge Plan - Plan Additional Instructions: pcp requested Referrals: Geena Pedersen MD [Primary Care Provider] -
[2016-07-17] MEDS: *HR* Morphine 2 MG/ML SYRINGE IVP PRN ×2 (15:35→21:10)
[2016-07-17] MEDS: Mirtazapine 15 MG TABLET PO SCH (21:08)
[2016-07-18 04:40] LABS: Basophils # 0.1 K/mcL (0.0-0.2); Basophils % 0.6 %; Eosinophils # 0.3 K/mcL (0.0-0.6); Eosinophils % 3.5 %; Hematocrit 31.2 % (35.3-44.9); Hemoglobin 9.9 g/dL (11.5-15.4); Immature Granulocytes % 1.2 % (0-4); Lymphocytes # 2.7 K/mcL (0.6-4.6); Mean Corpuscular HGB Conc 31.7 g/dL (31.6-35.5); Mean Corpuscular Hemoglobin 29.1 pg (28.0-33.3); Mean Corpuscular Volume 91.8 fL (83.0-100.0); Mean Platelet Volume 10.4 fL (9.4-12.4); Monocytes # 0.6 K/mcL (0.0-1.3); Monocytes % 6.7 %; Platelet Count 217 K/mcL (140-400); Red Cell Distribution Width 14.3 % (11.5-14.5)
[2016-07-18 05:01] LABS: Alanine Aminotransferase 7 Units/L (0-55); Albumin 2.8 g/dL (3.5-5.0); Albumin/Globulin Ratio 0.7 (1.1-2.2); Alkaline Phosphatase 42 Units/L (38-126); Aspartate Amino Transferase 16 Units/L (5-34); BUN/Creatinine Ratio 8 (6-26); Bilirubin,Total 0.5 mg/dL (0.2-1.2); Blood Urea Nitrogen 7 mg/dL (7-20); Calcium 8.6 mg/dL (8.6-10.8); Carbon Dioxide 21 mEq/L (19-29); Chloride 113 mEq/L (98-109); Glucose 96 mg/dL (70-99); Osmolality,Calculated 294 (280-300); Potassium 3.2 mEq/L (3.5-4.5); Sodium 143 mEq/L (136-145); Total Protein 6.8 g/dL (6.0-8.3); eGFR For African Americans > 60 (> 60); eGFR For Non-African Americans > 60 (> 60)
[2016-07-18] MEDS: *HR* Heparin 5,000 UNIT/ML VIAL SQ SCH (06:00)
[2016-07-18] MEDS: Budesonide/Formoterol 160/4.5 MDI IH SCH ×2 (08:08→20:30)
[2016-07-18] MEDS: Tiotropium 18 MCG inhalation IH SCH (08:08)
[2016-07-18] MEDS: Diltiazem CD (24hr) 120 MG CAPSULE PO SCH (09:18)
[2016-07-18] MEDS: Gabapentin 300 MG CAPSULE PO SCH ×3 (09:18→20:50)
[2016-07-18] MEDS: *HR* Morphine 2 MG/ML SYRINGE IVP PRN ×5 (09:21→23:00)
[2016-07-18] MEDS ORDERED: Potassium Chloride Elixir 20 MEQ/15 ML UDC PO ONE (10:17)
--- NOTE | 2016-07-18 10:19 | Internal Med Progress Note ---
Date of Encounter: 07/18/16 Time of Encounter: 10:15 - Assessment and plan (1) Anemia Current Visit: Yes Status: Acute Assessment and plan: Noted that patient has a drop in hemoglobin from 13.8-9.9 Plan: Stop S/C heparin SCD IV PPI 40 mg twice a day. Stool occult blood. If stool occult blood is positive then we will get an endoscopy team to do EGD. Qualifiers: Anemia type: unspecified type Qualified Code(s): D64.9 - Anemia, unspecified (2) UTI (urinary tract infection) Current Visit: Yes Status: Acute Assessment and plan: History of urinary tract infection multiple times in the past. Present admission is likely for the acute urinary tract infection. Previous admission in July 2015 for urinary tract infection: Escherichia coli: Pansensitive strain Plan: Admit as inpatient. IV fluids 100 mL/h. Intravenous ceftriaxone 1 g every 24 hours Urine culture/blood culture prior to antibiotics. Close monitoring 07/15/2016 Urine culture : GNR on Ceftrixone Day 2 will continue same. close follow up 07/16/2016 Urine culture: Gram-negative lucila: Escherichia coli: Resistant to ceftriaxone The Escherichia coli is a sensitive to rest all antibiotics except ceftriaxone. We will change from ceftriaxone to ciprofloxacin 500 mg twice a day. 07/17/2016 Patient still has occasional dysuria. Noted that she has recurrent urinary tract infection. We will get CT abdomen and pelvis with oral and IV contrast. Possible home in next 1-2 days 07/18/2016 Still has occasional dysuria. CT abdomen and pelvis: No evidence suggestive of a communication between her GI/ tract. We will continue same antibiotics for now. Qualifiers: Urinary tract infection type: acute cystitis Hematuria presence: without hematuria Qualified Code(s): N30.00 - Acute cystitis without hematuria (3) COPD (chronic obstructive pulmonary disease) Current Visit: No Status: Acute Assessment and plan: stable COPD Qualifiers: COPD type: unspecified COPD Qualified Code(s): J44.9 - Chronic obstructive pulmonary disease, unspecified (4) Hypertension Current Visit: No Status: Acute Assessment and plan: well-controlled Qualifiers: Hypertension type: essential hypertension Qualified Code(s): I10 - Essential (primary) hypertension (5) CAD (coronary artery disease) Current Visit: No Status: Chronic Assessment and plan: denies chest pain Qualifiers: Coronary Disease-Associated Artery/Lesion type: [place] artery [place] vs. transplanted heart: [place] heart Associated angina: without angina Qualified Code(s): I25.10 - Atherosclerotic heart disease of [place] coronary artery without angina pectoris (6) Bradycardia Current Visit: Yes Status: Acute Assessment and plan: Bradycardia resolved (7) DVT prophylaxis Current Visit: Yes Status: Acute Assessment and plan: SCD No pharmacological DVT prophylaxis in view of possible GI bleed. Medical decision making: This patient has a moderate to severe risk of worsening in spite of being on appropriate medical treatment due to underlying gastrointestinal issues - Subjective Interval history: patient seen and examined. Chart reviewed. patient denies abdominal pain, dysuria,increased frequency or vomiting 07/16/2016 Patient seen and examined. Chart reviewed. Patient feels much better as compared to yesterday. Patient denies abdominal pain, dysuria, increased frequency or vomiting 07/17/2016 Patient seen and examined. Chart reviewed. Patient feels much better as compared to yesterday. Patient denies abdominal pain, nausea or vomiting, 07/18/2016 Patient seen and examined. Chart reviewed. Patient feels better but still has dysuria. Patient also feels short of breath. - Constitutional Vitals: Temp Pulse Resp BP Pulse Ox 98.9 F 91 16 136/73 91 07/18/16 06:25 07/18/16 06:25 07/18/16 08:09 07/18/16 06:25 07/18/16 08:09 General appearance: Present: A&O X 3, pleasant, no acute distress, answers questions appropriately - Head Head exam: Present: atraumatic, normocephalic - Eye Eye exam: Present: PERRL, conjuntiva pink, sclera anicteric Pupils: Present: PERRL - Neck Neck exam general surgery: Present: supple, trachea midline. Absent: lymphadenopathy - Respiratory Respiratory exam: Present: CTAB. Absent: accessory muscle use, rales, rhonchi, wheezes - Cardiovascular Cardiovascular exam: Present: RRR, +S1, +S2. Absent: diastolic murmur, gallop, rubs, systolic murmur - GI/Abdominal GI/Abdominal exam: Present: normal bowel sounds, soft, no peritoneal signs. Absent: distended, tenderness - Extremities Exam Extremities exam: Present: warm, radial pulses palpable and symetrical. Absent : calf tenderness, cyanotic, pedal edema - Neurological Exam Neurological exam: Present: CN II-XII intact, oriented X3, no focal deficits. Absent: pronater drift, facial droop, speech deficit - Skin Skin exam: Present: dry, intact Internal Medicine: Result - Labs CBC & Chem 7: 07/18/16 03:23 07/18/16 03:23 Labs: Short CBC 07/18/16 Range/Units 03:23 WBC 8.7 (4.3-11.1) K/mcL Hgb 9.9 L (11.5-15.4) g/dL Hct 31.2 L (35.3-44.9) % Plt Count 217 (140-400) K/mcL Neutrophils # 5.0 (1.6-8.9) K/mcL BMP 07/18/16 03:23 Sodium 143 Potassium 3.2 L Chloride 113 H Carbon Dioxide 21 BUN 7 Creatinine 0.91 Glucose 96 Calcium 8.6 Liver Function 07/18/16 Range/Units 03:23 Total Bilirubin 0.5 (0.2-1.2) mg/dL AST 16 (5-34) Units/L ALT 7 (0-55) Units/L Alkaline Phosphatase 42 (38-126) Units/L Albumin 2.8 L (3.5-5.0) g/dL - ABG Interpretation ABG results: PT/INR, D-dimer PT 16.8 Seconds (9.4-12.1) H 07/14/16 13:06 - Impressions Impressions Abdomen/Pelvis CT 07/17/16 16:15 IMPRESSION: Abnormal inflammation in the [place] hepatis which may be due firm inflammation of the common duct. Abnormal appearance of the wall of the urinary bladder worrisome for acute cystitis. Small amount of free pelvic fluid. No finding worrisome for colovesical fistula or other significant abnormality. D/ / Gareth Cedeno MD / Gareth Cedeno MD Interpreting Provider: Gareth Cedeno MD - VTE Documentation of Mechanical Device: Graduated compression elastic hosiery Consult Discharge Plan - Plan Additional Instructions: pcp requested Referrals: Geena Pedersen MD [Primary Care Provider] -
[2016-07-18] MEDS: Pantoprazole 40 MG VIAL IVP SCH (18:23)
[2016-07-18] MEDS: Albuterol 2.5 MG/3 ML NEBULIZER IH PRN (20:30)
[2016-07-18] MEDS: Mirtazapine 15 MG TABLET PO SCH (20:50)
[2016-07-19] MEDS: Pantoprazole 40 MG VIAL IVP SCH (05:00)
[2016-07-19 05:36] LABS: Basophils # 0.1 K/mcL (0.0-0.2); Basophils % 0.9 %; Eosinophils # 0.4 K/mcL (0.0-0.6); Eosinophils % 4.8 %; Hematocrit 34.7 % (35.3-44.9); Hemoglobin 10.8 g/dL (11.5-15.4); Immature Granulocytes % 2.2 % (0-4); Immature Platelets 4.3 % (1.1-6.1); Lymphocytes % 37.4 %; Mean Corpuscular HGB Conc 31.1 g/dL (31.6-35.5); Mean Corpuscular Hemoglobin 29.1 pg (28.0-33.3); Mean Corpuscular Volume 93.5 fL (83.0-100.0); Mean Platelet Volume 10.2 fL (9.4-12.4); Monocytes # 0.5 K/mcL (0.0-1.3); Monocytes % 6.7 %; Neutrophils # 3.9 K/mcL (1.6-8.9); Platelet Count 305 K/mcL (140-400); Red Blood Count 3.71 M/mcL (3.82-4.97); Red Cell Distribution Width 14.7 % (11.5-14.5)
[2016-07-19 05:52] LABS: Alanine Aminotransferase 9 Units/L (0-55); Albumin 2.9 g/dL (3.5-5.0); Albumin/Globulin Ratio 0.7 (1.1-2.2); Alkaline Phosphatase 44 Units/L (38-126); Aspartate Amino Transferase 15 Units/L (5-34); BUN/Creatinine Ratio 9 (6-26); Bilirubin,Total 0.3 mg/dL (0.2-1.2); Blood Urea Nitrogen 9 mg/dL (7-20); Calcium 9.1 mg/dL (8.6-10.8); Carbon Dioxide 26 mEq/L (19-29); Chloride 109 mEq/L (98-109); Globulin 4.3 g/dL (2.4-3.5); Glucose 106 mg/dL (70-99); Osmolality,Calculated 293 (280-300); Sodium 142 mEq/L (136-145); Total Protein 7.2 g/dL (6.0-8.3); eGFR For African Americans > 60 (> 60); eGFR For Non-African Americans 58 (> 60)
[2016-07-19 07:36] VITALS: BP 116/77
[2016-07-19] MEDS: Budesonide/Formoterol 160/4.5 MDI IH SCH (08:02)
[2016-07-19] MEDS: Tiotropium 18 MCG inhalation IH SCH (08:02)
[2016-07-19] MEDS: Diltiazem CD (24hr) 120 MG CAPSULE PO SCH (08:50)
[2016-07-19] MEDS: Gabapentin 300 MG CAPSULE PO SCH (08:50)
[2016-07-19] MEDS: *HR* Morphine 2 MG/ML SYRINGE IVP PRN ×2 (08:57→12:23)
--- NOTE | 2016-07-19 12:55 | Discharge Summary ---
Date of Encounter: 07/19/16 Time of Encounter: 12:51 - Discharge Diagnosis (1) UTI (urinary tract infection) Priority: Primary Status: Acute Qualifiers: Urinary tract infection type: acute cystitis Hematuria presence: without hematuria Qualified Code(s): N30.00 - Acute cystitis without hematuria (2) Anemia Priority: Primary Status: Acute Qualifiers: Anemia type: unspecified type Qualified Code(s): D64.9 - Anemia, unspecified (3) COPD (chronic obstructive pulmonary disease) Priority: Secondary Status: Acute Qualifiers: COPD type: unspecified COPD Qualified Code(s): J44.9 - Chronic obstructive pulmonary disease, unspecified (4) Hypertension Priority: Secondary Status: Acute Qualifiers: Hypertension type: essential hypertension Qualified Code(s): I10 - Essential (primary) hypertension (5) CAD (coronary artery disease) Priority: Secondary Status: Chronic Qualifiers: Coronary Disease-Associated Artery/Lesion type: [place] artery [place] vs. transplanted heart: [place] heart Associated angina: without angina Qualified Code(s): I25.10 - Atherosclerotic heart disease of [place] coronary artery without angina pectoris (6) Bradycardia Priority: Secondary Status: Acute (7) DVT prophylaxis Priority: Secondary Status: Acute - Discharge Medications Prescriptions: Ciprofloxacin [Cipro] 500 mg PO BID #10 tablet Home Medications: Budesonide/Formoterol 160/4.5 [Symbicort] 2 puff IH BIDR 10/12/14 [History] Cetirizine HCl [Zyrtec] 10 mg PO DAILY 10/12/14 [History] ClonazePAM [Klonopin] 0.5 mg PO Q6H PRN 10/12/14 [History] Diltiazem CD (24hr) [Cardizem CD] 120 mg PO DAILY 10/12/14 [History] Gabapentin [Neurontin] 900 mg PO TID 10/12/14 [History] Montelukast [Singulair] 10 mg PO DAILY 10/12/14 [History] Oxygen 2 l NS AD 10/12/14 [History] Rosuvastatin [Crestor] 40 mg PO HS 10/12/14 [History] Zolpidem [Ambien] 10 mg PO HS 10/12/14 [History] Albuterol Neb [Proventil Neb] 2.5 mg IH Q4HR PRN 06/04/16 [History] Tizanidine HCl [Zanaflex] 8 mg PO QID 07/27/15 [History] Albuterol Sulfate [Ventolin Hfa] 2 puff IH Q4H PRN 07/14/16 [History] Dicyclomine [Bentyl] 10 mg PO TIDAC 07/14/16 [History] Mirtazapine [Remeron] 45 mg PO HS 07/14/16 [History] Ondansetron [Zofran ODT] 8 mg SL Q8H PRN 07/14/16 [History] Quetiapine Fumarate [Seroquel] 400 mg PO HS 07/14/16 [History] Tiotropium [place] [Spiriva Respimat] 2 puff IH DAILY 07/14/16 [History] Ciprofloxacin [Cipro] 500 mg PO BID #10 tablet 07/19/16 [Rx] Allergies/Adverse Reactions: Allergies baclofen Allergy (Verified 11/12/15 19:40) Irritable escitalopram [From Lexapro] Allergy (Verified 11/12/15 19:40) See Comments suicidal fluoxetine [From Prozac] Allergy (Verified 11/12/15 19:40) Itching Sulfa (Sulfonamide Antibiotics) Allergy (Verified 11/12/15 19:40) See Comments shortness of breath tramadol [From Ultram] Allergy (Verified 11/12/15 19:41) Seizure trazodone Allergy (Verified 11/12/15 19:40) Irritable venlafaxine [From Effexor] Allergy (Verified 11/12/15 19:40) See Comments suicidal Procedures/tests Complete & Pending: Procedures Performed prior 72 hours Category Date Time Status CT abd pelvis w iv and oral [CT] Routine Cat Scan 07/17/16 16:15 Completed Date of admission: 07/15/16 08:06 Primary care physician: Geena Pedersen, Discharging clinician: Baltazar Waggoner - Patient Status Disposition: Home, Self-Care Condition: Fair Functional capacity at discharge: independent ambulation Overall status at discharge: patient is progressing back to baseline - Discharge Instructions Follow Up With: Geena Pedersen MD [Primary Care Provider] - Forms: ED Satisfaction Letter Additional Instructions: pcp requested - Diet and Activity Activity: increase activity as tolerated Diet: low fat, low cholesterol, low salt diet Interval History: PCP : Geena Pandey PMH: COPD,GERD, Anxiety, HPI: Patient is ongoing dysuria, burning sensation, difficulty in micturition and worsening flank pain for more than 3 days. Patient claims that she had multiple falls since yesterday. Patient had a fall this morning. Patient denies chest pain, shortness of breath, abdominal distention, abdominal pain or diarrhea. Patient was brought to the emergency room in view of the frequent falls. Emergency room workup: Patient was evaluated in the emergency room. CT scan of the head was done which was negative for any acute event. Reason for admission: Frequent falls likely secondary to sepsis. Source of sepsis: Possible urinary tract Family history: Noncontributory Hospital course: Patient was hospitalized. She was started on IV antibiotics. Blood culture and urine cultures were sent. Blood culture was negative for growth. Urine culture was positive for Escherichia coli. Patient was initially on ceftriaxone. Noted that Escherichia coli from urine was resistant to ceftriaxone. Ciprofloxacin was started. Patient was hypokalemic. Potassium was replaced. CT scan of the abdomen and pelvis was done. CT scan did not show any abnormality. Plan Patient is keen to go home today. Patient can go home today. We will to total 10 days of ciprofloxacin orally. Follow-up with PCP in 1-2 weeks. All questions answered. At the time of discharge patient does not have any question, concerns, update or recommendations. - Time Spent with Patient Total time spent providing and/or coordinating discharge services: - Constitutional Vitals: Temp Pulse Resp BP Pulse Ox 98.1 F 83 15 116/77 93 07/19/16 07:34 07/19/16 07:34 07/19/16 07:34 07/19/16 07:34 07/19/16 07:34 General appearance: Present: A&O X 3, pleasant, no acute distress, answers questions appropriately - Head Head exam: Present: atraumatic, normocephalic - Eye Eye exam: Present: PERRL, conjuntiva pink, sclera anicteric Pupils: Present: PERRL - Neck Neck exam general surgery: Present: supple, trachea midline. Absent: lymphadenopathy - Respiratory Respiratory exam: Present: CTAB. Absent: accessory muscle use, rales, rhonchi, wheezes - Cardiovascular Cardiovascular exam: Present: RRR, +S1, +S2. Absent: diastolic murmur, gallop, rubs, systolic murmur - GI/Abdominal GI/Abdominal exam: Present: normal bowel sounds, soft, no peritoneal signs. Absent: distended, tenderness - Extremities Exam Extremities exam: Present: warm, radial pulses palpable and symetrical. Absent : calf tenderness, cyanotic, pedal edema - Neurological Exam Neurological exam: Present: CN II-XII intact, oriented X3, no focal deficits. Absent: pronater drift, facial droop, speech deficit - Skin Skin exam: Present: dry, intact - VTE Documentation of Mechanical Device: Graduated compression elastic hosiery
== END 2016-07-19 14:45 | disposition home or self-care (01) | DRG 720 ==
LOC: EMEROO 11:55 → 2NENU 11:55
PROVIDERS: ADMIT Internal Medicine; ATTEND Internal Medicine

== ENCOUNTER 2017-06-18 17:40 | Inpatient (IN) ==
--- NOTE | 2017-06-18 17:59 | Emergency Department Note ---
Disposition Clinical Impression: Hyperglycemia, New onset type 2 diabetes mellitus Nausea & vomiting Qualifiers: Vomiting type: unspecified Vomiting Intractability: non-intractable Qualified Code(s): R11.2 - Nausea with vomiting, unspecified Disposition: Admitted As Inpatient Condition: Fair General Adult HPI - General Chief complaint: ED Nausea/Vomiting/Diarrhea Stated complaint: vomiting,dizzy Time Seen by Provider: 06/18/17 17:58 Source: patient, family Limitations: no limitations - History of Present Illness Pain Scale: 6 - Related Data Home Medications Medication Instructions Recorded Confirmed Cetirizine HCl [Zyrtec] 10 mg PO DAILY 10/12/14 06/18/17 ClonazePAM [Klonopin] 0.5 mg PO Q6H PRN 10/12/14 06/18/17 Gabapentin [Neurontin] 900 mg PO TID 10/12/14 06/18/17 Montelukast [Singulair] 10 mg PO DAILY 10/12/14 06/18/17 Oxygen 2 l NS HS 10/12/14 06/18/17 Rosuvastatin [Crestor] 40 mg PO HS 10/12/14 06/18/17 Zolpidem [Ambien] 10 mg PO HS 10/12/14 06/18/17 Albuterol Neb [Proventil Neb] 2.5 mg IH Q4HR PRN 07/27/15 06/18/17 Tizanidine HCl [Zanaflex] 8 mg PO QID 07/27/15 06/18/17 Albuterol Sulfate [Ventolin Hfa] 2 puff IH Q4H PRN 07/14/16 06/18/17 Mirtazapine [Remeron] 45 mg PO HS 07/14/16 06/18/17 Quetiapine Fumarate [Seroquel] 400 mg PO HS 07/14/16 06/18/17 Tiotropium [place] [Spiriva 2 puff IH DAILY 07/14/16 06/18/17 Respimat] Paroxetine [Paxil] 20 mg PO DAILY 06/18/17 06/18/17 Previous Rx's Medication Instructions Recorded Cefdinir [Omnicef] 300 mg PO BID #8 capsule 06/21/17 Insulin DETEMIR [Levemir] 10 unit SQ HS 30 Days 06/21/17 Insulin LISPRO [HumaLOG] 2 units SQ TIDAC 30 Days vial 06/21/17 Allergies Allergy/AdvReac Type Severity Reaction Status Date / Time baclofen Allergy Irritable Verified 06/18/17 20:20 escitalopram [From Lexapro] Allergy See Verified 06/18/17 20:20 Comments fluoxetine [From Prozac] Allergy Itching Verified 06/18/17 20:20 Sulfa (Sulfonamide Allergy See Verified 06/18/17 20:20 Antibiotics) Comments tramadol [From Ultram] Allergy Seizure Verified 06/18/17 20:20 trazodone Allergy Irritable Verified 06/18/17 20:20 venlafaxine [From Effexor] Allergy See Verified 06/18/17 20:20 Comments Past Medical History - Past Medical History Medical history: Reports: COPD, coronary artery disease, GERD, hyperlipidemia, migraine, seizures, TIA Surgical history: Reports: appendectomy, cholecystectomy, orthopedic, other Psychiatric history: Reports: anxiety, depression RELATIONSHIP ASSOCIATE history: Reports: no RELATIONSHIP ASSOCIATE history - Social History Smoking Status: Current every day smoker Smokeless Tobacco Status: No Alcohol use: Reports: none Drug use: Reports: none Physical Exam - General Limitations: no limitations General appearance: alert, in no apparent distress Course Vital Signs Temperature 97.6 F 06/18/17 17:42 Pulse Rate 103 06/18/17 17:42 Respiratory Rate 18 06/18/17 17:42 Blood Pressure 142/81 06/18/17 17:42 O2 Sat by Pulse Oximetry 94 06/18/17 17:42 Temperature 97.8 F 06/21/17 07:10 Pulse Rate 76 06/21/17 07:10 Respiratory Rate 18 06/21/17 07:10 Blood Pressure 108/71 06/21/17 07:10 O2 Sat by Pulse Oximetry 95 06/21/17 07:10 Oxygen Delivery Oxygen Delivery Room Air Medical Decision Making - Lab Data Result diagrams: 06/21/17 05:20 06/21/17 05:20 Lab Results 06/18/17 06/18/17 06/18/17 Range/Units 18:45 18:55 18:55 WBC 7.0 (4.3-11.1) K/mcL RBC 5.32 H (3.82-4.97) M/mcL Hgb 15.9 H (11.5-15.4) g/dL Hct 46.5 H (35.3-44.9) % MCV 87.4 (83.0-100.0) fL MCH 29.9 (28.0-33.3) pg MCHC 34.2 (31.6-35.5) g/dL RDW 13.3 (11.5-14.5) % Plt Count 176 (140-400) K/mcL MPV 11.1 (9.4-12.4) fL Immature Gran % 0.1 (0-4) % Seg Neutrophils % 55.7 % Lymphocytes % 32.1 % Monocytes % 8.5 % Eosinophils % 2.3 % Basophils % 1.3 % Neutrophils # 3.9 (1.6-8.9) K/mcL Lymphocytes # 2.2 (0.6-4.6) K/mcL Monocytes # 0.6 (0.0-1.3) K/mcL Eosinophils # 0.2 (0.0-0.6) K/mcL Basophils # 0.1 (0.0-0.2) K/mcL Sample Site ABG pH (7.32-7.45) pH Units ABG pCO2 (35-45) mmHg ABG pO2 (85-104) mmHg ABG HCO3 (21-27) mEq/L ABG Total CO2 (20-26) mEq/L ABG O2 Saturation (95-98) % ABG Base Excess (-2 to 3) mEq/L Iain Test Inspired O2 (1-15=lpm [id number]=%) Sodium 113 L* (136-145) mEq/L Potassium 3.8 (3.5-5.1) mEq/L Chloride 72 L (98-107) mEq/L Carbon Dioxide 26 (23-29) mEq/L BUN 10 (6-20) mg/dL Creatinine 1.06 (0.60-1.20) mg/dL Est GFR ( Amer) > 60 (> 60) Est GFR (Non-Af Amer) 54 L (> 60) BUN/Creatinine Ratio 9 (6-26) Glucose 1061 H* (70-105) mg/dL POC Glucose (70-99) mg/dL Calculated Osmolality 289 (280-300) Calcium 10.0 (8.6-10.3) mg/dL Magnesium 2.0 (1.6-2.6) mg/dL Total Bilirubin 1.0 (0.3-1.0) mg/dL AST 47 H (13-39) Units/L ALT 38 (7-52) Units/L Alkaline Phosphatase 85 (34-104) Units/L Serum Total Protein 8.9 (6.4-8.9) g/dL Albumin 4.4 (3.5-5.7) g/dL Globulin 4.5 H (2.4-3.5) g/dL Albumin/Globulin Ratio 1.0 L (1.1-2.2) Lipase 142 H (11-82) Units/L Beta-Hydroxybutyric Acd 1.97 H (0.02-0.27) mmol/L Urine Color (Yellow) Urine Clarity (Clear) Urine pH (5.0-8.0) pH Units Ur Specific [place] (1.010-1.025) Urine Protein (Neg-Trace) mg/dL Urine Glucose (UA) (Normal) mg/dL Urine Ketones (Negative) mg/dL Urine Blood (Negative) Urine Nitrite (Negative) Urine Bilirubin (Negative) Urine Urobilinogen (Normal) mg/dL Ur Leukocyte Esterase (Negative) Ur Culture Indicated? (NO) 06/18/17 06/18/17 06/18/17 Range/Units 19:30 21:03 22:00 WBC (4.3-11.1) K/mcL RBC (3.82-4.97) M/mcL Hgb (11.5-15.4) g/dL Hct (35.3-44.9) % MCV (83.0-100.0) fL MCH (28.0-33.3) pg MCHC (31.6-35.5) g/dL RDW (11.5-14.5) % Plt Count (140-400) K/mcL MPV (9.4-12.4) fL Immature Gran % (0-4) % Seg Neutrophils % % Lymphocytes % % Monocytes % % Eosinophils % % Basophils % % Neutrophils # (1.6-8.9) K/mcL Lymphocytes # (0.6-4.6) K/mcL Monocytes # (0.0-1.3) K/mcL Eosinophils # (0.0-0.6) K/mcL Basophils # (0.0-0.2) K/mcL Sample Site R Radial ABG pH 7.44 (7.32-7.45) pH Units ABG pCO2 38 (35-45) mmHg ABG pO2 65 L (85-104) mmHg ABG HCO3 26 (21-27) mEq/L ABG Total CO2 27 H (20-26) mEq/L ABG O2 Saturation 93 L (95-98) % ABG Base Excess 2 (-2 to 3) mEq/L Iain Test Positive Inspired O2 21.0 (1-15=lpm [id number]=%) Sodium (136-145) mEq/L Potassium (3.5-5.1) mEq/L Chloride (98-107) mEq/L Carbon Dioxide (23-29) mEq/L BUN (6-20) mg/dL Creatinine (0.60-1.20) mg/dL Est GFR ( Amer) (> 60) Est GFR (Non-Af Amer) (> 60) BUN/Creatinine Ratio (6-26) Glucose (70-105) mg/dL POC Glucose 434 H* (70-99) mg/dL Calculated Osmolality (280-300) Calcium (8.6-10.3) mg/dL Magnesium (1.6-2.6) mg/dL Total Bilirubin (0.3-1.0) mg/dL AST (13-39) Units/L ALT (7-52) Units/L Alkaline Phosphatase (34-104) Units/L Serum Total Protein (6.4-8.9) g/dL Albumin (3.5-5.7) g/dL Globulin (2.4-3.5) g/dL Albumin/Globulin Ratio (1.1-2.2) Lipase (11-82) Units/L Beta-Hydroxybutyric Acd (0.02-0.27) mmol/L Urine Color Yellow (Yellow) Urine Clarity Clear (Clear) Urine pH 6.0 (5.0-8.0) pH Units Ur Specific [place] > 1.030 H (1.010-1.025) Urine Protein Negative (Neg-Trace) mg/dL Urine Glucose (UA) >=1000 H (Normal) mg/dL Urine Ketones Trace H (Negative) mg/dL Urine Blood Negative (Negative) Urine Nitrite Negative (Negative) Urine Bilirubin Negative (Negative) Urine Urobilinogen Normal (Normal) mg/dL Ur Leukocyte Esterase Negative (Negative) Ur Culture Indicated? NO (NO) 06/18/17 06/18/17 06/18/17 Range/Units 22:01 22:09 23:03 WBC (4.3-11.1) K/mcL RBC (3.82-4.97) M/mcL Hgb (11.5-15.4) g/dL Hct (35.3-44.9) % MCV (83.0-100.0) fL MCH (28.0-33.3) pg MCHC (31.6-35.5) g/dL RDW (11.5-14.5) % Plt Count (140-400) K/mcL MPV (9.4-12.4) fL Immature Gran % (0-4) % Seg Neutrophils % % Lymphocytes % % Monocytes % % Eosinophils % % Basophils % % Neutrophils # (1.6-8.9) K/mcL Lymphocytes # (0.6-4.6) K/mcL Monocytes # (0.0-1.3) K/mcL Eosinophils # (0.0-0.6) K/mcL Basophils # (0.0-0.2) K/mcL Sample Site ABG pH (7.32-7.45) pH Units ABG pCO2 (35-45) mmHg ABG pO2 (85-104) mmHg ABG HCO3 (21-27) mEq/L ABG Total CO2 (20-26) mEq/L ABG O2 Saturation (95-98) % ABG Base Excess (-2 to 3) mEq/L Iain Test Inspired O2 (1-15=lpm [id number]=%) Sodium 130 L D (136-145) mEq/L Potassium 2.9 L (3.5-5.1) mEq/L Chloride 96 L (98-107) mEq/L Carbon Dioxide 24 (23-29) mEq/L BUN 7 (6-20) mg/dL Creatinine 0.77 (0.60-1.20) mg/dL Est GFR ( Amer) > 60 (> 60) Est GFR (Non-Af Amer) > 60 (> 60) BUN/Creatinine Ratio 9 (6-26) Glucose 396 H (70-105) mg/dL POC Glucose 446 H* 283 H (70-99) mg/dL Calculated Osmolality 285 (280-300) Calcium 8.1 L (8.6-10.3) mg/dL Magnesium (1.6-2.6) mg/dL Total Bilirubin (0.3-1.0) mg/dL AST (13-39) Units/L ALT (7-52) Units/L Alkaline Phosphatase (34-104) Units/L Serum Total Protein (6.4-8.9) g/dL Albumin (3.5-5.7) g/dL Globulin (2.4-3.5) g/dL Albumin/Globulin Ratio (1.1-2.2) Lipase (11-82) Units/L Beta-Hydroxybutyric Acd (0.02-0.27) mmol/L Urine Color (Yellow) Urine Clarity (Clear) Urine pH (5.0-8.0) pH Units Ur Specific [place] (1.010-1.025) Urine Protein (Neg-Trace) mg/dL Urine Glucose (UA) (Normal) mg/dL Urine Ketones (Negative) mg/dL Urine Blood (Negative) Urine Nitrite (Negative) Urine Bilirubin (Negative) Urine Urobilinogen (Normal) mg/dL Ur Leukocyte Esterase (Negative) Ur Culture Indicated? (NO) 06/18/17 06/19/17 Range/Units 23:40 00:29 WBC (4.3-11.1) K/mcL RBC (3.82-4.97) M/mcL Hgb (11.5-15.4) g/dL Hct (35.3-44.9) % MCV (83.0-100.0) fL MCH (28.0-33.3) pg MCHC (31.6-35.5) g/dL RDW (11.5-14.5) % Plt Count (140-400) K/mcL MPV (9.4-12.4) fL Immature Gran % (0-4) % Seg Neutrophils % % Lymphocytes % % Monocytes % % Eosinophils % % Basophils % % Neutrophils # (1.6-8.9) K/mcL Lymphocytes # (0.6-4.6) K/mcL Monocytes # (0.0-1.3) K/mcL Eosinophils # (0.0-0.6) K/mcL Basophils # (0.0-0.2) K/mcL Sample Site ABG pH (7.32-7.45) pH Units ABG pCO2 (35-45) mmHg ABG pO2 (85-104) mmHg ABG HCO3 (21-27) mEq/L ABG Total CO2 (20-26) mEq/L ABG O2 Saturation (95-98) % ABG Base Excess (-2 to 3) mEq/L Iain Test Inspired O2 (1-15=lpm [id number]=%) Sodium (136-145) mEq/L Potassium (3.5-5.1) mEq/L Chloride (98-107) mEq/L Carbon Dioxide (23-29) mEq/L BUN (6-20) mg/dL Creatinine (0.60-1.20) mg/dL Est GFR ( Amer) (> 60) Est GFR (Non-Af Amer) (> 60) BUN/Creatinine Ratio (6-26) Glucose (70-105) mg/dL POC Glucose 223 H 238 H (70-99) mg/dL Calculated Osmolality (280-300) Calcium (8.6-10.3) mg/dL Magnesium (1.6-2.6) mg/dL Total Bilirubin (0.3-1.0) mg/dL AST (13-39) Units/L ALT (7-52) Units/L Alkaline Phosphatase (34-104) Units/L Serum Total Protein (6.4-8.9) g/dL Albumin (3.5-5.7) g/dL Globulin (2.4-3.5) g/dL Albumin/Globulin Ratio (1.1-2.2) Lipase (11-82) Units/L Beta-Hydroxybutyric Acd (0.02-0.27) mmol/L Urine Color (Yellow) Urine Clarity (Clear) Urine pH (5.0-8.0) pH Units Ur Specific [place] (1.010-1.025) Urine Protein (Neg-Trace) mg/dL Urine Glucose (UA) (Normal) mg/dL Urine Ketones (Negative) mg/dL Urine Blood (Negative) Urine Nitrite (Negative) Urine Bilirubin (Negative) Urine Urobilinogen (Normal) mg/dL Ur Leukocyte Esterase (Negative) Ur Culture Indicated? (NO) Critical Care Time Critical Care Time: Yes Total Critical Care Time: 35 Attestation: Critical care performed: Time is exclusive of separately billable procedures. Time includes: direct patient care, patient reassessment, coordination of patient care, interpretation of data (laboratory data, radiology data, and respiratory data), review of patient's medical records, medical consultation and documentation of patient care. Procedures included in critical care time: Procedures excluded from critical care time: Attestation Statement - Attestation Attestation: I examined this patient and my medical decision-making was reviewed with the Resident Physician. I agree with the documented findings, disposition and treatment plan as described except to the extent set forth below. Patient presents to the ED with chief clinic dizziness. Patient describes it as spinning sensation when she stands. She states it starts his nausea. When she stands or moves she gets dizzy and then she vomits. Resolves with rest. She is in no distress on examination. She does have some horizontal nystagmus. Plan. Labs fluids and head CT. She is receiving meclizine and Benadryl. We will reevaluate. Patient hyperglycemic. Pseudohyponatremia. Anion gap is 15. We will start on an insulin drip. Fluids. Potassium. Admit.
--- NOTE | 2017-06-18 18:09 | Emergency Department Note ---
Disposition Clinical Impression: Hyperglycemia, New onset type 2 diabetes mellitus Peripheral vertigo Qualifiers: Laterality: unspecified laterality Qualified Code(s): H81.399 - Other peripheral vertigo, unspecified ear Nausea & vomiting Qualifiers: Vomiting type: unspecified Vomiting Intractability: non-intractable Qualified Code(s): R11.2 - Nausea with vomiting, unspecified Disposition: Admitted As Inpatient Condition: Fair Referrals: Luke Ba DO [Primary Care Provider] - Forms: ED Satisfaction Letter Time of Disposition: 20:26 General Adult HPI - General Chief complaint: ED Nausea/Vomiting/Diarrhea Stated complaint: vomiting,dizzy Time Seen by Provider: 06/18/17 17:58 Source: patient, family Limitations: no limitations Nursing Notes Reviewed: Yes Vital Signs Reviewed: Yes - History of Present Illness HPI Narrative: 6-year-old female complains of acute onset of vertigo symptoms to include room spinning. Patient states that 4 days ago she started having symptoms URI with cough congestion. That night she got up to use the bathroom and became very dizzy. Since then her dizziness has increased to include nausea and vomiting. Symptoms cease when she is not moving. Patient states she has had previous episodes of vertigo in the past, approximately year ago when she was admitted and treated for sepsis. On review of systems patient states she has had hearing loss over the past several months. Pain Scale: 6 - Related Data Home Medications Medication Instructions Recorded Confirmed Cetirizine HCl [Zyrtec] 10 mg PO DAILY 10/12/14 06/18/17 ClonazePAM [Klonopin] 0.5 mg PO Q6H PRN 10/12/14 06/18/17 Gabapentin [Neurontin] 900 mg PO TID 10/12/14 06/18/17 Montelukast [Singulair] 10 mg PO DAILY 10/12/14 06/18/17 Oxygen 2 l NS HS 10/12/14 06/18/17 Rosuvastatin [Crestor] 40 mg PO HS 10/12/14 06/18/17 Zolpidem [Ambien] 10 mg PO HS 10/12/14 06/18/17 Albuterol Neb [Proventil Neb] 2.5 mg IH Q4HR PRN 07/27/15 06/18/17 Tizanidine HCl [Zanaflex] 8 mg PO QID 07/27/15 06/18/17 Albuterol Sulfate [Ventolin Hfa] 2 puff IH Q4H PRN 07/14/16 06/18/17 Mirtazapine [Remeron] 45 mg PO HS 07/14/16 06/18/17 Quetiapine Fumarate [Seroquel] 400 mg PO HS 07/14/16 06/18/17 Tiotropium [place] [Spiriva 2 puff IH DAILY 07/14/16 06/18/17 Respimat] Paroxetine [Paxil] 20 mg PO DAILY 06/18/17 06/18/17 Allergies Allergy/AdvReac Type Severity Reaction Status Date / Time baclofen Allergy Irritable Verified 06/18/17 20:20 escitalopram [From Lexapro] Allergy See Verified 06/18/17 20:20 Comments fluoxetine [From Prozac] Allergy Itching Verified 06/18/17 20:20 Sulfa (Sulfonamide Allergy See Verified 06/18/17 20:20 Antibiotics) Comments tramadol [From Ultram] Allergy Seizure Verified 06/18/17 20:20 trazodone Allergy Irritable Verified 06/18/17 20:20 venlafaxine [From Effexor] Allergy See Verified 06/18/17 20:20 Comments All systems ED: reviewed and negative except as stated. Review of Systems: As Per HPI Constitutional: Denies: fever, chills Respiratory: Reports: cough Gastrointestinal: Reports: nausea, vomiting. Denies: hematemesis, hematochezia Genitourinary: Reports: frequency Past Medical History - Past Medical History Attestation: Yes The following information was validated with the patient. Source: patient, nursing notes reviewed Medical history: Reports: COPD, coronary artery disease, GERD, hyperlipidemia, migraine, seizures, TIA Surgical history: Reports: appendectomy, cholecystectomy, orthopedic, other Psychiatric history: Reports: anxiety, depression ROAD PACKER OPERATOR history: Reports: no ROAD PACKER OPERATOR history - Social History Smoking Status: Current every day smoker Smokeless Tobacco Status: No Alcohol use: Reports: none Drug use: Reports: none Physical Exam Vital Signs Temperature 97.6 F 06/18/17 17:42 Pulse Rate 103 06/18/17 17:42 Respiratory Rate 18 06/18/17 17:42 Blood Pressure 142/81 06/18/17 17:42 O2 Sat by Pulse Oximetry 94 06/18/17 17:42 Temperature 97.6 F 06/18/17 17:42 Pulse Rate 103 06/18/17 17:42 Respiratory Rate 18 06/18/17 17:42 Blood Pressure 142/81 06/18/17 17:42 O2 Sat by Pulse Oximetry 94 06/18/17 17:42 Oxygen Delivery Oxygen Delivery Room Air CONSTITUTIONAL: Well-appearing; well-nourished; A&O X 3, in no apparent distress HEAD: Normocephalic; atraumatic EYES: PERRL, no scleral icterus, left beating nystagmus. Extraocular movement intact. Lateral movements increase sensation of vertigo Ears: No abnormalities concerning patient's tympanic membranes bilaterally. EACs clean and dry. Left hearing deficit. Patient unable to hear something like of fingers on the left. Patient can hear clearly on the right NOSE: The nose is normal in appearance without rhinorrhea NECK: No JVD or distended neck veins RESP: Normal chest excursion with respiration; breath sounds clear and equal bilaterally; no wheezes, rhonchi, or rales CARD: Regular rhythm, without murmurs, rub or gallop ABD: Non-distended; non-tender, soft, without rigidity, rebound or guarding,no pulsatile mass CHEST: No pain with palpation SKIN: Normal for age and race; warm and dry without diaphoresis ; no apparent lesions EXTREMITIES: Pulses are 2 plus and equal times 4 extremities, no peripheral edema or calf muscle pain NEUROLOGICAL: Patient is alert and oriented times three. Cranial nerves III- XII are intact. Sensory and motor functions are intact. Strength is 5/5 for flexion and extension in all 4 extremities. Patellar DTRS are equal and intact. Finger to nose testing is equal and normal bilaterally. No dysdiadochokinesis HINTS: Exam negative for signs of central cause of vertigo. - General Limitations: no limitations General appearance: alert, in no apparent distress Course - Reevaluation(s) Reevaluation #1: Patient off to CT for head scan Time: 18:42 Reevaluation #2: Lab called with a critical glucose of 1061, and a sodium level 113. Time: 20:01 Vital Signs Temperature 97.6 F 06/18/17 17:42 Pulse Rate 103 06/18/17 17:42 Respiratory Rate 18 06/18/17 17:42 Blood Pressure 142/81 06/18/17 17:42 O2 Sat by Pulse Oximetry 94 06/18/17 17:42 Temperature 97.6 F 06/18/17 17:42 Pulse Rate 124 06/18/17 19:22 Respiratory Rate 20 06/18/17 19:22 Blood Pressure 84/48 06/18/17 19:22 O2 Sat by Pulse Oximetry 96 06/18/17 19:22 Oxygen Delivery Oxygen Delivery Nasal Cannula Medical Decision Making - [facility] Narrative Medical decision making narrative: Patient presents with acute onset of vertigo symptoms and left-sided hearing loss was worked up to include screening labs. Labs revealed a glucose level of 1061. Patient does not have a history of diabetes but she does now. Patient has an anion gap of 15. ABG, beta hydroxybutyrate acid ordered along with potassium replacement and consider current potassium level 3.8 along with insulin drip. Patient has been informed that her head CT was negative for any abnormalities but she needs to be admitted for new-onset diabetes which is most likely causing her nausea and vomiting and possibly vertigo-like symptoms. She agrees to treatment plan for admission to the hospital for further assessment and treatment for hyperosmolar hyperglycemic state is secondary to new onset diabetes. Beta hydroxybutyric acid elevated as well, awaiting ABG but treatment has been initiated and ABG will not change patient's plan for admission. Sodium is 113 is most likely pseudohyponatremia because patient's blood glucose is very high adjusted glucose is still hyponatremia but greater than 125. Patient was given meclizine and Benadryl for her vertigo symptoms, she is received 1 L IV normal saline and will received 3 more. - Lab Data Lab results reviewed: Yes I reviewed the patient's lab results. Result diagrams: 06/18/17 18:55 06/18/17 18:55 Lab Results 06/18/17 06/18/17 06/18/17 Range/Units 18:45 18:55 18:55 WBC 7.0 (4.3-11.1) K/mcL RBC 5.32 H (3.82-4.97) M/mcL Hgb 15.9 H (11.5-15.4) g/dL Hct 46.5 H (35.3-44.9) % MCV 87.4 (83.0-100.0) fL MCH 29.9 (28.0-33.3) pg MCHC 34.2 (31.6-35.5) g/dL RDW 13.3 (11.5-14.5) % Plt Count 176 (140-400) K/mcL MPV 11.1 (9.4-12.4) fL Immature Gran % 0.1 (0-4) % Seg Neutrophils % 55.7 % Lymphocytes % 32.1 % Monocytes % 8.5 % Eosinophils % 2.3 % Basophils % 1.3 % Neutrophils # 3.9 (1.6-8.9) K/mcL Lymphocytes # 2.2 (0.6-4.6) K/mcL Monocytes # 0.6 (0.0-1.3) K/mcL Eosinophils # 0.2 (0.0-0.6) K/mcL Basophils # 0.1 (0.0-0.2) K/mcL Sodium 113 L* (136-145) mEq/L Potassium 3.8 (3.5-5.1) mEq/L Chloride 72 L (98-107) mEq/L Carbon Dioxide 26 (23-29) mEq/L BUN 10 (6-20) mg/dL Creatinine 1.06 (0.60-1.20) mg/dL Est GFR ( Amer) > 60 (> 60) Est GFR (Non-Af Amer) 54 L (> 60) BUN/Creatinine Ratio 9 (6-26) Glucose 1061 H* (70-105) mg/dL Calculated Osmolality 289 (280-300) Calcium 10.0 (8.6-10.3) mg/dL Magnesium 2.0 (1.6-2.6) mg/dL Total Bilirubin 1.0 (0.3-1.0) mg/dL AST 47 H (13-39) Units/L ALT 38 (7-52) Units/L Alkaline Phosphatase 85 (34-104) Units/L Serum Total Protein 8.9 (6.4-8.9) g/dL Albumin 4.4 (3.5-5.7) g/dL Globulin 4.5 H (2.4-3.5) g/dL Albumin/Globulin Ratio 1.0 L (1.1-2.2) Lipase 142 H (11-82) Units/L Beta-Hydroxybutyric Acd 1.97 H (0.02-0.27) mmol/L Urine Color (Yellow) Urine Clarity (Clear) Urine pH (5.0-8.0) pH Units Ur Specific [place] (1.010-1.025) Urine Protein (Neg-Trace) mg/dL Urine Glucose (UA) (Normal) mg/dL Urine Ketones (Negative) mg/dL Urine Blood (Negative) Urine Nitrite (Negative) Urine Bilirubin (Negative) Urine Urobilinogen (Normal) mg/dL Ur Leukocyte Esterase (Negative) Ur Culture Indicated? (NO) 06/18/17 Range/Units 19:30 WBC (4.3-11.1) K/mcL RBC (3.82-4.97) M/mcL Hgb (11.5-15.4) g/dL Hct (35.3-44.9) % MCV (83.0-100.0) fL MCH (28.0-33.3) pg MCHC (31.6-35.5) g/dL RDW (11.5-14.5) % Plt Count (140-400) K/mcL MPV (9.4-12.4) fL Immature Gran % (0-4) % Seg Neutrophils % % Lymphocytes % % Monocytes % % Eosinophils % % Basophils % % Neutrophils # (1.6-8.9) K/mcL Lymphocytes # (0.6-4.6) K/mcL Monocytes # (0.0-1.3) K/mcL Eosinophils # (0.0-0.6) K/mcL Basophils # (0.0-0.2) K/mcL Sodium (136-145) mEq/L Potassium (3.5-5.1) mEq/L Chloride (98-107) mEq/L Carbon Dioxide (23-29) mEq/L BUN (6-20) mg/dL Creatinine (0.60-1.20) mg/dL Est GFR ( Amer) (> 60) Est GFR (Non-Af Amer) (> 60) BUN/Creatinine Ratio (6-26) Glucose (70-105) mg/dL Calculated Osmolality (280-300) Calcium (8.6-10.3) mg/dL Magnesium (1.6-2.6) mg/dL Total Bilirubin (0.3-1.0) mg/dL AST (13-39) Units/L ALT (7-52) Units/L Alkaline Phosphatase (34-104) Units/L Serum Total Protein (6.4-8.9) g/dL Albumin (3.5-5.7) g/dL Globulin (2.4-3.5) g/dL Albumin/Globulin Ratio (1.1-2.2) Lipase (11-82) Units/L Beta-Hydroxybutyric Acd (0.02-0.27) mmol/L Urine Color Yellow (Yellow) Urine Clarity Clear (Clear) Urine pH 6.0 (5.0-8.0) pH Units Ur Specific [place] > 1.030 H (1.010-1.025) Urine Protein Negative (Neg-Trace) mg/dL Urine Glucose (UA) >=1000 H (Normal) mg/dL Urine Ketones Trace H (Negative) mg/dL Urine Blood Negative (Negative) Urine Nitrite Negative (Negative) Urine Bilirubin Negative (Negative) Urine Urobilinogen Normal (Normal) mg/dL Ur Leukocyte Esterase Negative (Negative) Ur Culture Indicated? NO (NO) - Radiology Data Radiology results reviewed: Yes I reviewed the patient's radiology results. Head CT 06/18/17 18:19 IMPRESSION: Stable negative CT brain with no acute intracranial abnormality. D/ / Mamadou Blanco MD / Mamadou Blanco MD Interpreting Provider: Mamadou Blanco MD
[2017-06-18] MEDS ORDERED: 0.9 % Sodium Chloride 1,000 ML IVC ONE ×3 (18:21→19:56)
[2017-06-18 19:15] LABS: Basophils # 0.1 K/mcL (0.0-0.2); Basophils % 1.3 %; Eosinophils # 0.2 K/mcL (0.0-0.6); Eosinophils % 2.3 %; Hematocrit 46.5 % (35.3-44.9); Hemoglobin 15.9 g/dL (11.5-15.4); Immature Granulocytes % 0.1 % (0-4); Lymphocytes # 2.2 K/mcL (0.6-4.6); Lymphocytes % 32.1 %; Mean Corpuscular HGB Conc 34.2 g/dL (31.6-35.5); Mean Corpuscular Hemoglobin 29.9 pg (28.0-33.3); Mean Corpuscular Volume 87.4 fL (83.0-100.0); Mean Platelet Volume 11.1 fL (9.4-12.4); Monocytes # 0.6 K/mcL (0.0-1.3); Monocytes % 8.5 %; Neutrophils # 3.9 K/mcL (1.6-8.9); Platelet Count 176 K/mcL (140-400); Red Blood Count 5.32 M/mcL (3.82-4.97); Red Cell Distribution Width 13.3 % (11.5-14.5); Segmented Neutrophils % 55.7 %
[2017-06-18 19:41] LABS: Bilirubin,Urine Negative (Negative); Blood,Urine Negative (Negative); Clarity,Urine Clear (Clear); Color,Urine Yellow (Yellow); Glucose,Urine (UA) >=1000 mg/dL (Normal); Ketones,Urine Trace mg/dL (Negative); Leukocyte Esterase,Urine Negative (Negative); Nitrite,Urine Negative (Negative); Protein,Urine Negative (Neg-Trace); Specific Gravity,Urine > 1.030 (1.010-1.025); Urobilinogen,Urine Normal (Normal)
[2017-06-18] MEDS ORDERED: *HR* Dextrose 50 % in Water (Syg) 50 ML SYRINGE IVP PRN ×2 (19:49→21:50)
[2017-06-18 19:50] LABS: Alanine Aminotransferase 38 Units/L (7-52); Albumin 4.4 g/dL (3.5-5.7); Alkaline Phosphatase 85 Units/L (34-104); Aspartate Amino Transferase 47 Units/L (13-39); BUN/Creatinine Ratio 9 (6-26); Blood Urea Nitrogen 10 mg/dL (6-20); Carbon Dioxide 26 mEq/L (23-29); Chloride 72 mEq/L (98-107); Globulin 4.5 g/dL (2.4-3.5); Lipase 142 Units/L (11-82); Osmolality,Calculated 289 (280-300); Sodium 113 mEq/L (136-145); Total Protein 8.9 g/dL (6.4-8.9); eGFR For African Americans > 60 (> 60); eGFR For Non-African Americans 54 (> 60)
[2017-06-18 19:53] LABS: Glucose 1061 mg/dL (70-105)
[2017-06-18 19:54] LABS: Potassium 3.8 mEq/L (3.5-5.1)
[2017-06-18] MEDS ORDERED: Insulin Human Regular 100 UNIT in 0.9 % Sodium Chloride 100 ML IVC SCH (20:00)
[2017-06-18 21:08] LABS: ABG Base Excess 2 mEq/L (-2 to 3); ABG HCO3 26 mEq/L (21-27); ABG Oxygen Saturation 93 % (95-98); ABG PCO2 38 mmHg (35-45); ABG PH 7.44 pH Units (7.32-7.45); ABG PO2 65 mmHg (85-104); ABG TCO2 27 mEq/L (20-26)
[2017-06-18] MEDS ORDERED: Naloxone 0.4 MG/ML INJ IVP PRN (21:44)
[2017-06-18] MEDS ORDERED: D5% in 0.45% NACL 1,000 ML IVC PRN (21:50)
[2017-06-18] MEDS ORDERED: Insulin LISPRO 300 UNITS/3 ML VIAL SQ PRN (21:50)
[2017-06-18] MEDS ORDERED: Ipratropium/Albuterol Neb 3 ML IH PRN (21:56)
[2017-06-18] MEDS ORDERED: 0.9 % Sodium Chloride 1,000 ML IVC SCH (22:00)
--- NOTE | 2017-06-18 22:01 | Internal Med History&Physical ---
Date of Encounter: 06/18/17 Time of Encounter: 20:00 Internal Medicine - H&P: HPI Chief complaint: Nausea, vomiting, and dizziness Admitted From: Home Plans for Post Hospital Care: Home History of present illness: Ms. Daniels is a 56 year old female present to ER for nausea, vomiting, and dizziness for 4 days. Past medical history is significant for COPD and seasonal allergy. Patient said she started to have dizziness upon standing up for about 4 days. Patient also has nausea and vomited 5 times today. The vomiting are stomach content, no blood in it, no coffee ground emesis. Patient has generalized abdominal pain, no diarrhea. Patient denies fever. Further history shows patient has polydipsia and polyuria for about several weeks with generalized weakness. Patient denies bodyweight change. In the emergency room, she was found glucose level over 1000. Patient denies recent steroid use. Patient's last glucose level in our chart was 266 on 05/13/17. AG 15, ketone positive. Patient was admitted for DKA. Past Med Surg Social Fam HX - Past Medical History Medical history: COPD, coronary artery disease, GERD, hyperlipidemia, migraine, seizures, TIA Psychiatric history: anxiety, depression - Past Surgical History Surgical History: appendectomy, cholecystectomy, orthopedic, other - Social History Smoking Status: Current every day smoker Smokeless Tobacco Status: No Alcohol use: none Drug use: none - Family History Mother Living Status: Hx Family Cardiac Disorders: Yes Hx Family Respiratory Disorders: Yes Hx Family Cancer: No Internal Medicine - H&P: Meds Cetirizine HCl [Zyrtec] 10 mg PO DAILY 10/12/14 [History] ClonazePAM [Klonopin] 0.5 mg PO Q6H PRN 10/12/14 [History] Gabapentin [Neurontin] 900 mg PO TID 10/12/14 [History] Montelukast [Singulair] 10 mg PO DAILY 10/12/14 [History] Oxygen 2 l NS HS 10/12/14 [History] Rosuvastatin [Crestor] 40 mg PO HS 10/12/14 [History] Zolpidem [Ambien] 10 mg PO HS 10/12/14 [History] Albuterol Neb [Proventil Neb] 2.5 mg IH Q4HR PRN 07/27/15 [History] Tizanidine HCl [Zanaflex] 8 mg PO QID 07/27/15 [History] Albuterol Sulfate [Ventolin Hfa] 2 puff IH Q4H PRN 07/14/16 [History] Mirtazapine [Remeron] 45 mg PO HS 07/14/16 [History] Quetiapine Fumarate [Seroquel] 400 mg PO HS 07/14/16 [History] Tiotropium [place] [Spiriva Respimat] 2 puff IH DAILY 07/14/16 [History] Paroxetine [Paxil] 20 mg PO DAILY 06/18/17 [History] 3 Allergy/AdvReac Type Severity Reaction Status Date / Time baclofen Allergy Irritable Verified 06/18/17 20:20 escitalopram [From Lexapro] Allergy See Verified 06/18/17 20:20 Comments fluoxetine [From Prozac] Allergy Itching Verified 06/18/17 20:20 Sulfa (Sulfonamide Allergy See Verified 06/18/17 20:20 Antibiotics) Comments tramadol [From Ultram] Allergy Seizure Verified 06/18/17 20:20 trazodone Allergy Irritable Verified 06/18/17 20:20 venlafaxine [From Effexor] Allergy See Verified 06/18/17 20:20 Comments All Systems PM: A 10-system review of systems was performed and is negative for pertinent findings except as documented above in the HPI. - Constitutional Vitals: Temp Pulse Resp BP Pulse Ox 97.6 F 124 20 84/48 96 06/18/17 17:42 06/18/17 19:22 06/18/17 19:22 06/18/17 19:22 06/18/17 19:22 General appearance: Present: A&O X 3, no acute distress, answers questions appropriately - Head Head exam: Present: atraumatic, normocephalic - Eye Eye exam: Present: PERRL, conjuntiva pink, sclera anicteric Pupils: Present: PERRL - Neck Neck exam general surgery: Present: supple, trachea midline. Absent: lymphadenopathy - Respiratory Respiratory exam: Present: CTAB. Absent: accessory muscle use, rales, rhonchi, wheezes - Cardiovascular Cardiovascular exam: Present: RRR, +S1, +S2. Absent: diastolic murmur, gallop, rubs, systolic murmur - GI/Abdominal GI/Abdominal exam: Present: normal bowel sounds, soft, tenderness (Mild tenderness in 4Q, no rebound or guarding), no peritoneal signs. Absent: distended - Extremities Exam Extremities exam: Present: warm, radial pulses palpable and symmetrical. Absent : calf tenderness, cyanotic, pedal edema - Neurological Exam Neurological exam: Present: CN II-XII intact, oriented X3, no focal deficits. Absent: pronater drift, facial droop, speech deficit - Skin Skin exam: Present: dry, intact Internal Med - H&P Results - Labs CBC & Chem 7: 06/18/17 18:55 06/18/17 18:55 Labs: Short CBC 06/18/17 Range/Units 18:55 WBC 7.0 (4.3-11.1) K/mcL Hgb 15.9 H (11.5-15.4) g/dL Hct 46.5 H (35.3-44.9) % Plt Count 176 (140-400) K/mcL Neutrophils # 3.9 (1.6-8.9) K/mcL BMP 06/18/17 18:55 Sodium 113 L* Potassium 3.8 Chloride 72 L Carbon Dioxide 26 BUN 10 Creatinine 1.06 Glucose 1061 H* Calcium 10.0 Liver Function 06/18/17 Range/Units 18:55 Total Bilirubin 1.0 (0.3-1.0) mg/dL AST 47 H (13-39) Units/L ALT 38 (7-52) Units/L Alkaline Phosphatase 85 (34-104) Units/L Albumin 4.4 (3.5-5.7) g/dL Urine 06/18/17 Range/Units 19:30 Urine Color Yellow (Yellow) Urine Clarity Clear (Clear) Urine pH 6.0 (5.0-8.0) pH Units Ur Specific [place] > 1.030 H (1.010-1.025) Urine Protein Negative (Neg-Trace) mg/dL Urine Glucose (UA) >=1000 H (Normal) mg/dL - ABG Interpretation ABG results: 06/18/17 21:03 ABG pH 7.44 ABG pCO2 38 ABG pO2 65 L ABG HCO3 26 ABG Total CO2 27 H ABG O2 Saturation 93 L ABG Base Excess 2 - Impressions ITS Impressions Head CT 06/18/17 18:19 IMPRESSION: Stable negative CT brain with no acute intracranial abnormality. D/ / Mamadou Blanco MD / Mamadou Blanco MD Interpreting Provider: Mamadou Blanco MD - Assessment and plan (1) Hyponatremia Current Visit: Yes Status: Acute Assessment and plan: Consider peudo-hyponatremia cause by hyperglycemia. Expect improvement after insulin drip use. (2) Near syncope Current Visit: Yes Status: Acute Assessment and plan: Probably due to hypovolemia caused by severe hypoglycemia. We will give patient IV fluid. Will also place syncope workup to rule out cardio/neuro etiology. - CT head has been done, negative. - Continuous cardiac monitoring - Echo and duplex carotid - Orthostatic vitals (3) New onset type 2 diabetes mellitus Current Visit: Yes Status: Acute Assessment and plan: Patient has no known history of diabetes. Consider new diabetes. - Hemoglobin A1c - Now on insulin drip for DKA, will switch to basal and sliding scale insulin - Dietitian and pharmacy consult (4) COPD (chronic obstructive pulmonary disease) Current Visit: No Status: Acute Assessment and plan: Stable. DuoNeb when necessary Qualifiers: COPD type: unspecified COPD Qualified Code(s): J44.9 - Chronic obstructive pulmonary disease, unspecified (5) DVT prophylaxis Current Visit: No Status: Acute Assessment and plan: Heparin subcutaneously (6) DKA (diabetic ketoacidoses) Current Visit: Yes Status: Acute Assessment and plan: Patient has glucose level over 1000. AG 15. Ketone Positive. Consider DKA. - Insulin drip - IV fluid per protocol - Check glucose q1h, BMP q4h, potassium supplement as needed per protocol - Closely monitor patient in telemetry. - ABG has been done in ER, no significant metabolic acidosis. Qualifiers: Diabetes mellitus type: type 2 Diabetes mellitus complication detail: without coma Qualified Code(s): E11.10 - Type 2 diabetes mellitus with ketoacidosis without coma - Time Spent With Patient Total time spent is greater than 50% in coordination of care (as documented) at patient's floor/unit and/or counseling patient: 40 minutes Greater than 35 minutes
[2017-06-18] MEDS ORDERED: *HR* HYDROcodone/Acet 5/325 mg TABLET PO ONE (23:03)
[2017-06-18 23:05] LABS: BUN/Creatinine Ratio 9 (6-26); Blood Urea Nitrogen 7 mg/dL (6-20); Calcium 8.1 mg/dL (8.6-10.3); Carbon Dioxide 24 mEq/L (23-29); Chloride 96 mEq/L (98-107); Glucose 396 mg/dL (70-105); Osmolality,Calculated 285 (280-300); Potassium 2.9 mEq/L (3.5-5.1); Sodium 130 mEq/L (136-145); eGFR For African Americans > 60 (> 60); eGFR For Non-African Americans > 60 (> 60)
[2017-06-19 02:10] LABS: BUN/Creatinine Ratio 8 (6-26); Blood Urea Nitrogen 5 mg/dL (6-20); Calcium 8.4 mg/dL (8.6-10.3); Carbon Dioxide 26 mEq/L (23-29); Chloride 102 mEq/L (98-107); Glucose 220 mg/dL (70-105); Osmolality,Calculated 284 (280-300); Potassium 3.3 mEq/L (3.5-5.1); Sodium 135 mEq/L (136-145); eGFR For African Americans > 60 (> 60); eGFR For Non-African Americans > 60 (> 60)
[2017-06-19] MEDS ORDERED: D5% in 0.45% NACL w KCl 20 MEQ/1,000 ML MLS IVC PRN (02:29)
[2017-06-19] MEDS ORDERED: OXYCODONE Oral CONC 10 MG/0.5 ML ORAL.SYG SL PRN (02:37)
[2017-06-19 04:34] LABS: Basophils # 0.1 K/mcL (0.0-0.2); Basophils % 1.2 %; Eosinophils # 0.4 K/mcL (0.0-0.6); Eosinophils % 4.9 %; Hematocrit 39.6 % (35.3-44.9); Immature Granulocytes % 0.3 % (0-4); Lymphocytes # 3.8 K/mcL (0.6-4.6); Lymphocytes % 50.7 %; Mean Corpuscular HGB Conc 34.1 g/dL (31.6-35.5); Mean Corpuscular Hemoglobin 30.1 pg (28.0-33.3); Mean Corpuscular Volume 88.4 fL (83.0-100.0); Mean Platelet Volume 10.3 fL (9.4-12.4); Monocytes # 0.8 K/mcL (0.0-1.3); Monocytes % 10.3 %; Neutrophils # 2.4 K/mcL (1.6-8.9); Nucleated Red Blood Cells 0.3 /100 WBC (0); Platelet Count 168 K/mcL (140-400); Red Blood Count 4.48 M/mcL (3.82-4.97); Red Cell Distribution Width 13.2 % (11.5-14.5); Segmented Neutrophils % 32.6 %
[2017-06-19 04:37] LABS: Hemoglobin 13.5 g/dL (11.5-15.4)
[2017-06-19 04:53] LABS: BUN/Creatinine Ratio 6 (6-26); Blood Urea Nitrogen 4 mg/dL (6-20); Calcium 8.4 mg/dL (8.6-10.3); Carbon Dioxide 27 mEq/L (23-29); Chloride 99 mEq/L (98-107); Glucose 275 mg/dL (70-105); Magnesium 1.7 mg/dL (1.6-2.6); Osmolality,Calculated 285 (280-300); Phosphorous 2.5 mg/dL (2.7-4.5); Potassium 3.3 mEq/L (3.5-5.1); Sodium 134 mEq/L (136-145); eGFR For African Americans > 60 (> 60); eGFR For Non-African Americans > 60 (> 60)
[2017-06-19] MEDS ORDERED: Insulin DETEMIR 100 UNIT/ML X5UNITS SQ ONE (05:34)
[2017-06-19] MEDS: 0.9 % Sodium Chloride w KCl 20 MEQ/1,000 ML MLS IVC SCH ×2 (05:46→06:31)
[2017-06-19] MEDS: Insulin DETEMIR 100 UNIT/ML X5UNITS SQ SCH ×2 (06:15→21:34)
[2017-06-19] MEDS: *HR* Heparin 5,000 UNIT/ML VIAL SQ SCH ×2 (06:24→16:38)
[2017-06-19 06:29] LABS: BUN/Creatinine Ratio 6 (6-26); Blood Urea Nitrogen 4 mg/dL (6-20); Calcium 8.3 mg/dL (8.6-10.3); Carbon Dioxide 24 mEq/L (23-29); Chloride 100 mEq/L (98-107); Glucose 258 mg/dL (70-105); Osmolality,Calculated 280 (280-300); Potassium 3.2 mEq/L (3.5-5.1); Sodium 132 mEq/L (136-145); eGFR For African Americans > 60 (> 60); eGFR For Non-African Americans > 60 (> 60)
[2017-06-19] MEDS ORDERED: D5% in Water 1,000 ML IVC PRN (08:59)
[2017-06-19] MEDS: Nicotine 21 MG PATCH.TD24 TD SCH (09:14)
[2017-06-19] MEDS: OXYCODONE Oral CONC 10 MG/0.5 ML ORAL.SYG SL PRN ×2 (09:29→16:44)
[2017-06-19 10:42] LABS: BUN/Creatinine Ratio 5 (6-26); Blood Urea Nitrogen 3 mg/dL (6-20); Calcium 8.4 mg/dL (8.6-10.3); Carbon Dioxide 24 mEq/L (23-29); Chloride 103 mEq/L (98-107); Glucose 137 mg/dL (70-105); Osmolality,Calculated 277 (280-300); Potassium 3.3 mEq/L (3.5-5.1); Sodium 134 mEq/L (136-145); eGFR For African Americans > 60 (> 60); eGFR For Non-African Americans > 60 (> 60)
[2017-06-19] MEDS: *HR* Promethazine 25 MG/ML VIAL IVP PRN (13:00)
[2017-06-19] MEDS ORDERED: clonazePAM 0.5 MG TABLET PO PRN (13:12)
--- NOTE | 2017-06-19 13:17 | Internal Med Progress Note ---
Date of Encounter: 06/19/17 Time of Encounter: 13:14 - Assessment and plan (1) New onset type 2 diabetes mellitus Current Visit: Yes Status: Acute Assessment and plan: DKA due to new onset DM 2, likely triggered by acute bacterial bronchitis Anion gap was 15 and beta hydroxy butyric acid was almost 2 - Hemoglobin A1c pending Insulin drip was discontinued, the patient was started on Levemir 8 units at night and will add 3 units 3 times a day plus insulin sliding scale Diabetic diet Start Rocephin and order a chest x-ray (2) COPD (chronic obstructive pulmonary disease) Current Visit: No Status: Acute Assessment and plan: Chronic respiratory failure, the patient uses 2 L of oxygen as needed at home. ABG showed a pH of 7.4 PCO2 of 38 and a PO2 at 65 Stable. No exacerbation DuoNeb when necessary Qualifiers: COPD type: unspecified COPD Qualified Code(s): J44.9 - Chronic obstructive pulmonary disease, unspecified (3) Hyponatremia Current Visit: Yes Status: Acute Assessment and plan: Consider peudo-hyponatremia cause by hyperglycemia. Improving. (4) Near syncope Current Visit: Yes Status: Acute Assessment and plan: Probably due to hypovolemia caused by severe hypoglycemia. . - CT head was, negative. - Echo and duplex carotid - Orthostatic vitals (5) DKA (diabetic ketoacidoses) Current Visit: Yes Status: Acute Assessment and plan: Patient has glucose level over 1000. AG 15. Ketone Positive. Consider DKA. - Insulin drip discontinued - . Qualifiers: Diabetes mellitus type: type 2 Diabetes mellitus complication detail: without coma Qualified Code(s): E11.10 - Type 2 diabetes mellitus with ketoacidosis without coma (6) Anxiety Current Visit: No Status: Acute Assessment and plan: Continue clonazepam and SSRIs - Time Spent With Patient Total time spent is greater than 50% in coordination of care (as documented) at patient's floor/unit and/or counseling patient: - Subjective Interval history: Complaint of abdominal discomfort and persistent nausea, denies any chest pain but feels short of breath little bit more than usual, was having a productive cough yesterday, no fevers, no dysuria or diarrhea - Constitutional Vitals: Temp Pulse Resp BP Pulse Ox 98.3 F 86 17 131/72 93 06/19/17 11:00 06/19/17 11:00 06/19/17 11:00 06/19/17 11:00 06/19/17 11:00 General appearance: Present: A&O X 3, no acute distress, answers questions appropriately - Head Head exam: Present: atraumatic, normocephalic - Eye Eye exam: Present: PERRL, conjuntiva pink, sclera anicteric Pupils: Present: PERRL - Neck Neck exam general surgery: Present: supple, trachea midline. Absent: lymphadenopathy - Respiratory Respiratory exam: Present: decreased breath sounds (Very diminished), CTAB. Absent: accessory muscle use, rales, rhonchi, wheezes - Cardiovascular Cardiovascular exam: Present: RRR, +S1, +S2. Absent: diastolic murmur, gallop, rubs, systolic murmur - GI/Abdominal GI/Abdominal exam: Present: normal bowel sounds, soft, no peritoneal signs. Absent: distended, tenderness - Extremities Exam Extremities exam: Present: warm, radial pulses palpable and symmetrical. Absent : calf tenderness, cyanotic, pedal edema - Neurological Exam Neurological exam: Present: CN II-XII intact, oriented X3, no focal deficits. Absent: pronater drift, facial droop, speech deficit - Skin Skin exam: Present: dry, intact Internal Medicine: Result - Labs CBC & Chem 7: 06/19/17 04:10 06/19/17 10:05 Labs: Short CBC 06/19/17 Range/Units 04:10 WBC 7.5 (4.3-11.1) K/mcL Hgb 13.5 D (11.5-15.4) g/dL Hct 39.6 (35.3-44.9) % Plt Count 168 (140-400) K/mcL Neutrophils # 2.4 (1.6-8.9) K/mcL BMP 06/19/17 06/19/17 06/19/17 01:43 04:10 05:56 Sodium 135 L 134 L 132 L Potassium 3.3 L 3.3 L 3.2 L Chloride 102 99 100 Carbon Dioxide 26 27 24 BUN 5 L 4 L 4 L Creatinine 0.64 0.67 0.64 Glucose 220 H 275 H 258 H Calcium 8.4 L 8.4 L 8.3 L 06/19/17 10:05 Sodium 134 L Potassium 3.3 L Chloride 103 Carbon Dioxide 24 BUN 3 L Creatinine 0.56 L Glucose 137 H Calcium 8.4 L - ABG Interpretation ABG results: ABG ABG pH 7.44 pH Units (7.32-7.45) 06/18/17 21:03 ABG pCO2 38 mmHg (35-45) 06/18/17 21:03 ABG pO2 65 mmHg (85-104) L 06/18/17 21:03 ABG O2 Saturation 93 % (95-98) L 06/18/17 21:03 Consult Discharge Plan - Plan Referrals: Luke Ba DO [Primary Care Provider] -
[2017-06-19] MEDS: Gabapentin 300 MG CAPSULE PO SCH ×2 (14:41→21:33)
[2017-06-19] MEDS: cefTRIAXone 1,000 MG in Water for inj. (sterile) 20 ML 10 ML IVP SCH (14:41)
[2017-06-19] MEDS: Insulin LISPRO 300 UNITS/3 ML VIAL SQ SCH ×5 (14:42→22:21)
[2017-06-19] MEDS: Ipratropium/Albuterol Neb 3 ML IH SCH ×2 (16:07→23:00)
[2017-06-19] MEDS ORDERED: *HR* Promethazine 25 MG/ML VIAL IVP ONE (16:35)
[2017-06-19] MEDS: tiZANidine 4 MG TABLET PO SCH ×2 (16:38→22:21)
[2017-06-19] MEDS: Mirtazapine 15 MG TABLET PO SCH (21:32)
[2017-06-19] MEDS ORDERED: 0.9 % Sodium Chloride 1,000 ML IVC ONE (22:03)
[2017-06-20 03:49] LABS: Hematocrit 33.6 % (35.3-44.9); Mean Corpuscular HGB Conc 32.1 g/dL (31.6-35.5); Mean Corpuscular Hemoglobin 29.8 pg (28.0-33.3); Mean Corpuscular Volume 92.6 fL (83.0-100.0); Mean Platelet Volume 10.5 fL (9.4-12.4); Platelet Count 122 K/mcL (140-400); Red Blood Count 3.63 M/mcL (3.82-4.97); Red Cell Distribution Width 13.8 % (11.5-14.5)
[2017-06-20 03:50] LABS: Hemoglobin 10.8 g/dL (11.5-15.4)
[2017-06-20] MEDS: *HR* Promethazine 25 MG/ML VIAL IVP PRN ×3 (04:08→23:51)
[2017-06-20 04:11] LABS: BUN/Creatinine Ratio 8 (6-26); Blood Urea Nitrogen 5 mg/dL (6-20); Calcium 7.9 mg/dL (8.6-10.3); Carbon Dioxide 20 mEq/L (23-29); Chloride 110 mEq/L (98-107); Glucose 292 mg/dL (70-105); Osmolality,Calculated 290 (280-300); Potassium 3.5 mEq/L (3.5-5.1); Sodium 136 mEq/L (136-145); eGFR For African Americans > 60 (> 60); eGFR For Non-African Americans > 60 (> 60)
[2017-06-20] MEDS: Ipratropium/Albuterol Neb 3 ML IH SCH ×4 (04:54→22:05)
[2017-06-20] MEDS: *HR* Heparin 5,000 UNIT/ML VIAL SQ SCH ×2 (06:35→16:29)
[2017-06-20 08:07] LABS: Estimated Average Glucose 418 mg/dl; Hemoglobin A1C 16.2 %
[2017-06-20] MEDS: Gabapentin 300 MG CAPSULE PO SCH ×3 (08:25→21:36)
[2017-06-20] MEDS: tiZANidine 4 MG TABLET PO SCH ×4 (08:26→23:50)
[2017-06-20] MEDS: Nicotine 21 MG PATCH.TD24 TD SCH (08:27)
[2017-06-20] MEDS: Insulin LISPRO 300 UNITS/3 ML VIAL SQ SCH ×7 (08:28→21:39)
[2017-06-20] MEDS: OXYCODONE Oral CONC 10 MG/0.5 ML ORAL.SYG SL PRN (08:42)
--- NOTE | 2017-06-20 11:41 | Internal Med Progress Note ---
Date of Encounter: 06/20/17 Time of Encounter: 11:38 - Assessment and plan (1) New onset type 2 diabetes mellitus Current Visit: Yes Status: Acute Assessment and plan: DKA due to new onset DM 2, likely triggered by acute bacterial bronchitis Anion gap was 15 and beta hydroxy butyric acid was almost 2 - Hemoglobin A1c 16.2 Insulin drip was discontinued, the patient was started on Levemir 8 units at night and added 3 units 3 times a day plus insulin sliding scale Diabetic diet Continue Rocephin day #2 chest x-ray was unremarkable (2) COPD (chronic obstructive pulmonary disease) Current Visit: No Status: Acute Assessment and plan: Chronic respiratory failure, the patient uses 2 L of oxygen as needed at home. ABG showed a pH of 7.4 PCO2 of 38 and a PO2 at 65 Stable. No exacerbation DuoNeb when necessary Qualifiers: COPD type: unspecified COPD Qualified Code(s): J44.9 - Chronic obstructive pulmonary disease, unspecified (3) Hyponatremia Current Visit: Yes Status: Acute Assessment and plan: Consider peudo-hyponatremia cause by hyperglycemia. Improving. (4) Near syncope Current Visit: Yes Status: Acute Assessment and plan: Probably due to hypovolemia caused by severe hypoglycemia. . - CT head was, negative. - Echo and duplex carotid - Orthostatic vitals (5) DKA (diabetic ketoacidoses) Current Visit: Yes Status: Acute Assessment and plan: Patient has glucose level over 1000. AG 15. Ketone Positive. Resolved - . Qualifiers: Diabetes mellitus type: type 2 Diabetes mellitus complication detail: without coma Qualified Code(s): E11.10 - Type 2 diabetes mellitus with ketoacidosis without coma (6) Anxiety Current Visit: No Status: Acute Assessment and plan: Continue clonazepam and SSRIs (7) Anemia Current Visit: No Status: Acute Assessment and plan: Possible iron deficiency anemia, consider possible blood loss anemia Hemoglobin was 15.9 upon admission likely secondary to severe dehydration and has dropped after hydration, the patient denies any dark stools or bleeding. Hemoglobin is 10.8. Recheck in the morning Consider transfusions, start Protonix, order Hemoccult Consider GI consult if it keeps dropping Qualifiers: Anemia type: unspecified type Qualified Code(s): D64.9 - Anemia, unspecified - Time Spent With Patient Total time spent is greater than 50% in coordination of care (as documented) at patient's floor/unit and/or counseling patient: - Subjective Interval history: very somnolent. Complains of less abdominal discomfort and persistent nausea, denies any chest pain but feels short of breath little bit more than usual, was having a productive cough , no fevers, no dysuria or diarrhea - Constitutional Vitals: Temp Pulse Resp BP Pulse Ox 98.5 F 66 16 89/57 92 06/20/17 10:51 06/20/17 10:51 06/20/17 10:51 06/20/17 10:51 06/20/17 10:51 General appearance: Present: A&O X 3, no acute distress, answers questions appropriately Exam: - Head Head exam: Present: atraumatic, normocephalic - Eye Eye exam: Present: PERRL, conjuntiva pink, sclera anicteric Pupils: Present: PERRL - Neck Neck exam general surgery: Present: supple, trachea midline. Absent: lymphadenopathy - Respiratory Respiratory exam: Present: decreased breath sounds (Very diminished), CTAB. Absent: accessory muscle use, rales, rhonchi, wheezes - Cardiovascular Cardiovascular exam: Present: RRR, +S1, +S2. Absent: diastolic murmur, gallop, rubs, systolic murmur - GI/Abdominal GI/Abdominal exam: Present: normal bowel sounds, soft, no peritoneal signs. Absent: distended, tenderness - Extremities Exam Extremities exam: Present: warm, radial pulses palpable and symmetrical. Absent : calf tenderness, cyanotic, pedal edema - Neurological Exam Neurological exam: Present: CN II-XII intact, oriented X3, no focal deficits. Absent: pronater drift, facial droop, speech deficit - Skin Skin exam: Present: dry, intact Internal Medicine: Result - Labs CBC & Chem 7: 06/20/17 03:27 06/20/17 03:27 Labs: Short CBC 06/20/17 Range/Units 03:27 WBC 5.3 (4.3-11.1) K/mcL Hgb 10.8 L D (11.5-15.4) g/dL Hct 33.6 L (35.3-44.9) % Plt Count 122 L (140-400) K/mcL BMP 06/20/17 03:27 Sodium 136 Potassium 3.5 Chloride 110 H Carbon Dioxide 20 L BUN 5 L Creatinine 0.64 Glucose 292 H Calcium 7.9 L - ABG Interpretation ABG results: ABG ABG pH 7.44 pH Units (7.32-7.45) 06/18/17 21:03 ABG pCO2 38 mmHg (35-45) 06/18/17 21:03 ABG pO2 65 mmHg (85-104) L 06/18/17 21:03 ABG O2 Saturation 93 % (95-98) L 06/18/17 21:03 - Impressions Impressions Chest X-Ray 06/19/17 13:01 IMPRESSION: No acute pneumonia. D/ / 06/19/2017 14:14:26 Everette Ricketts MD / jewel Interpreting Provider: Everette Ricketts MD Consult Discharge Plan - Plan Referrals: Luke Ba DO [Primary Care Provider] -
[2017-06-20] MEDS: Pantoprazole 40 MG VIAL IVP SCH (12:50)
[2017-06-20] MEDS: cefTRIAXone 1,000 MG in Water for inj. (sterile) 20 ML 10 ML IVP SCH (12:56)
[2017-06-20 17:00] LABS: Hematocrit 33.6 % (35.3-44.9); Hemoglobin 11.1 g/dL (11.5-15.4)
[2017-06-20] MEDS: Mirtazapine 15 MG TABLET PO SCH (21:36)
[2017-06-20] MEDS: Insulin DETEMIR 100 UNIT/ML X5UNITS SQ SCH (21:39)
[2017-06-21] MEDS: OXYCODONE Oral CONC 10 MG/0.5 ML ORAL.SYG SL PRN ×2 (00:03→06:25)
[2017-06-21] MEDS: Ipratropium/Albuterol Neb 3 ML IH SCH ×2 (03:55→10:47)
[2017-06-21 05:41] LABS: Hematocrit 38.3 % (35.3-44.9); Hemoglobin 12.2 g/dL (11.5-15.4); Mean Corpuscular HGB Conc 31.9 g/dL (31.6-35.5); Mean Corpuscular Hemoglobin 30.1 pg (28.0-33.3); Mean Corpuscular Volume 94.6 fL (83.0-100.0); Mean Platelet Volume 10.8 fL (9.4-12.4); Platelet Count 135 K/mcL (140-400); Red Blood Count 4.05 M/mcL (3.82-4.97); Red Cell Distribution Width 13.8 % (11.5-14.5)
[2017-06-21 05:56] LABS: BUN/Creatinine Ratio 9 (6-26); Blood Urea Nitrogen 6 mg/dL (6-20); Calcium 8.8 mg/dL (8.6-10.3); Carbon Dioxide 22 mEq/L (23-29); Chloride 113 mEq/L (98-107); Glucose 220 mg/dL (70-105); Osmolality,Calculated 294 (280-300); Potassium 4.2 mEq/L (3.5-5.1); Sodium 140 mEq/L (136-145); eGFR For African Americans > 60 (> 60); eGFR For Non-African Americans > 60 (> 60)
[2017-06-21] MEDS: *HR* Heparin 5,000 UNIT/ML VIAL SQ SCH (06:21)
[2017-06-21 07:11] VITALS: BP 108/71
[2017-06-21] MEDS: Gabapentin 300 MG CAPSULE PO SCH (07:51)
[2017-06-21] MEDS: Nicotine 21 MG PATCH.TD24 TD SCH (07:51)
[2017-06-21] MEDS: tiZANidine 4 MG TABLET PO SCH (07:51)
[2017-06-21] MEDS: cefTRIAXone 1,000 MG in Water for inj. (sterile) 20 ML 10 ML IVP SCH (07:52)
[2017-06-21] MEDS: Pantoprazole 40 MG VIAL IVP SCH (07:53)
[2017-06-21] MEDS: *HR* Promethazine 25 MG/ML VIAL IVP PRN (08:00)
[2017-06-21] MEDS: Insulin LISPRO 300 UNITS/3 ML VIAL SQ SCH ×2 (08:00→08:01)
--- NOTE | 2017-06-21 09:45 | Discharge Summary ---
- NOTES TO OUTPATIENT PROVIDER Notes to Outpatient Provider: Follow-up with primary care physician within the next 7 days. Check glucose once daily. Diabetic diet. Complete 4 more days of cefdinir. Start Levemir 10 units at night with Humalog per sliding scale. Sliding scale depending on glucose levels: 2 units 100-149. 4 units 150-199. 6 units 200-249. 8 units 250-299. 10 units 300-349. 12 units 350-399. 14 units >400 Orders not resulted at time of discharge: Pending orders 06/20/17 10:49 Fecal Hemoccult [Occult Blood,Stool] [BF] Routine Date of Encounter: 06/21/17 Time of Encounter: 09:39 - Discharge Diagnosis (1) New onset type 2 diabetes mellitus Priority: Primary Status: Acute Assessment and Plan: DKA due to new onset DM 2, likely triggered by acute bacterial bronchitis (2) COPD (chronic obstructive pulmonary disease) Priority: Secondary Status: Acute Assessment and Plan: Chronic respiratory failure, the patient uses 2 L of oxygen as needed at home. Qualifiers: COPD type: unspecified COPD Qualified Code(s): J44.9 - Chronic obstructive pulmonary disease, unspecified (3) Hyponatremia Priority: Secondary Status: Acute Assessment and Plan: Consider peudo-hyponatremia cause by hyperglycemia. Improving. (4) Near syncope Priority: Secondary Status: Acute Assessment and Plan: Probably due to hypovolemia caused by severe hypoglycemia. . - CT head was, negative. - Echo and duplex carotid - Orthostatic vitals (5) DKA (diabetic ketoacidoses) Priority: Secondary Status: Acute Assessment and Plan: Patient has glucose level over 1000. AG 15. Ketone Positive. Resolved - . Qualifiers: Diabetes mellitus type: type 2 Diabetes mellitus complication detail: without coma Qualified Code(s): E11.10 - Type 2 diabetes mellitus with ketoacidosis without coma (6) Anxiety Priority: Secondary Status: Acute Assessment and Plan: Continue clonazepam and SSRIs (7) Anemia Priority: Secondary Status: Acute Assessment and Plan: Possible iron deficiency anemia Qualifiers: Anemia type: unspecified type Qualified Code(s): D64.9 - Anemia, unspecified Hospital course: Ms. Daniels is a 56 year old female with a past medical history of COPD oxygen dependent, CAD, GERD, hyperlipidemia, migraines, seizures, TIA, presented to the ER for nausea, vomiting, and dizziness for 4 days. Past medical history is significant for COPD and seasonal allergy. Patient said she started to have dizziness upon standing up for about 4 days. Patient also had nausea and vomited 5 times . Patient had generalized abdominal pain, no diarrhea. Patient denied fever. Further history showed patient had polydipsia and polyuria for about several weeks with generalized weakness. In the emergency room, she was found glucose level over 1000. Patient denied recent steroid use. UA ketone positive. Patient was admitted for DKA. Anion gap was 15 and beta hydroxy butyric acid was almost 2 ABG showed a pH of 7.4 PCO2 of 38 and a PO2 at 65 - Hemoglobin A1c was 16.2 Insulin drip was discontinued, the patient was started on Levemir and humalog insulin sliding scale Diabetic diet Received 3 days of Rocephin chest x-ray was unremarkable Hemoglobin was 15.9 upon admission likely secondary to severe dehydration and has dropped after hydration, the patient denied any dark stools or bleeding. Hemoglobin came down to 10.8, today's 12.2. Improved without intervention The patient is feeling better today and is a stable to be discharged - Time Spent with Patient Total time spent providing and/or coordinating discharge services: Greater than 30 minutes (40 min) - Discharge Medications Prescriptions: Cefdinir [Omnicef] 300 mg PO BID #8 capsule Insulin DETEMIR [Levemir] 10 unit SQ HS 30 Days Insulin LISPRO [HumaLOG] 2 units SQ TIDAC 30 Days vial Home Medications: Cetirizine HCl [Zyrtec] 10 mg PO DAILY 10/12/14 [History] ClonazePAM [Klonopin] 0.5 mg PO Q6H PRN 10/12/14 [History] Gabapentin [Neurontin] 900 mg PO TID 10/12/14 [History] Montelukast [Singulair] 10 mg PO DAILY 10/12/14 [History] Oxygen 2 l NS HS 10/12/14 [History] Rosuvastatin [Crestor] 40 mg PO HS 10/12/14 [History] Zolpidem [Ambien] 10 mg PO HS 10/12/14 [History] Albuterol Neb [Proventil Neb] 2.5 mg IH Q4HR PRN 07/27/15 [History] Tizanidine HCl [Zanaflex] 8 mg PO QID 07/27/15 [History] Albuterol Sulfate [Ventolin Hfa] 2 puff IH Q4H PRN 07/14/16 [History] Mirtazapine [Remeron] 45 mg PO HS 07/14/16 [History] Quetiapine Fumarate [Seroquel] 400 mg PO HS 07/14/16 [History] Tiotropium [place] [Spiriva Respimat] 2 puff IH DAILY 07/14/16 [History] Paroxetine [Paxil] 20 mg PO DAILY 06/18/17 [History] Cefdinir [Omnicef] 300 mg PO BID #8 capsule 06/21/17 [Rx] Insulin DETEMIR [Levemir] 10 unit SQ HS 30 Days 06/21/17 [Rx] Insulin LISPRO [HumaLOG] 2 units SQ TIDAC 30 Days vial 06/21/17 [Rx] Allergies/Adverse Reactions: 3 Allergy/AdvReac Type Severity Reaction Status Date / Time baclofen Allergy Irritable Verified 06/18/17 20:20 escitalopram [From Lexapro] Allergy See Verified 06/18/17 20:20 Comments fluoxetine [From Prozac] Allergy Itching Verified 06/18/17 20:20 Sulfa (Sulfonamide Allergy See Verified 06/18/17 20:20 Antibiotics) Comments tramadol [From Ultram] Allergy Seizure Verified 06/18/17 20:20 trazodone Allergy Irritable Verified 06/18/17 20:20 venlafaxine [From Effexor] Allergy See Verified 06/18/17 20:20 Comments Date of admission: 06/19/17 00:59 Primary care physician: Luke Ba DO Consults: 06/19/17 02:29 Consult to Endocrinology [CONS] Routine Consulting Provider: [facility] [place] Reason for Consult: New onset DKA/ DM Call Completed: No 06/21/17 09:35 Consult to Occupational Therapy [CONS] Routine Comment: Evaluate, develop and implement POC Reason for Consult: eval Does patient have active BEDREST order?: No Is patient medically & hemodynamically stable?: Yes Patient assessed for mobility or mobilized this visit?: Yes Consult to Physical Therapy [CONS] Routine Comment: Evaluate, develop and implement POC Reason for Consult: eval Does patient have active BEDREST order?: No Is patient medically & hemodynamically stable?: Yes Patient assessed for mobility or mobilized this visit?: Yes - Constitutional Vitals: Temp Pulse Resp BP Pulse Ox 97.8 F 76 18 108/71 95 06/21/17 07:10 06/21/17 07:10 06/21/17 07:10 06/21/17 07:10 06/21/17 07:10 General appearance: Present: A&O X 3, no acute distress, answers questions appropriately Exam: - Head Head exam: Present: atraumatic, normocephalic - Eye Eye exam: Present: PERRL, conjuntiva pink, sclera anicteric Pupils: Present: PERRL - Neck Neck exam general surgery: Present: supple, trachea midline. Absent: lymphadenopathy - Respiratory Respiratory exam: Present: decreased breath sounds (Very diminished), CTAB. Absent: accessory muscle use, rales, rhonchi, wheezes - Cardiovascular Cardiovascular exam: Present: RRR, +S1, +S2. Absent: diastolic murmur, gallop, rubs, systolic murmur - GI/Abdominal GI/Abdominal exam: Present: normal bowel sounds, soft, no peritoneal signs. Absent: distended, tenderness - Extremities Exam Extremities exam: Present: warm, radial pulses palpable and symmetrical. Absent : calf tenderness, cyanotic, pedal edema - Neurological Exam Neurological exam: Present: CN II-XII intact, oriented X3, no focal deficits. Absent: pronater drift, facial droop, speech deficit - Skin Skin exam: Present: dry, intact - Patient Status Disposition: Home Health Service Condition: Fair Overall status at discharge: patient is progressing back to baseline - Discharge Instructions Follow Up With: Luke Ba DO [Primary Care Provider] - Additional Instructions: Follow-up with primary care physician within the next 7 days. Check glucose once daily. Diabetic diet. Complete 4 more days of cefdinir. Start Levemir 10 units at night with Humalog per sliding scale Sliding scale depending on glucose levels: 2 units 100-149 4 units 150-199 6 units 200-249 8 units 250-299 10 units 300-349 12 units 350-399 14 units >400 - Diet and Activity Activity: wear oxygen at night (As needed) Diet: diabetic diet
--- NOTE | 2017-06-21 10:19 | Physician Discharge Referral ---
Home Health/Hosp Referral Info Transfer to: Home Health Provider in Charge Post Discharge: PCP - Diagnosis (1) New onset type 2 diabetes mellitus Status: Acute (2) COPD (chronic obstructive pulmonary disease) Status: Acute (3) Hyponatremia Status: Acute (4) Near syncope Status: Acute (5) DKA (diabetic ketoacidoses) Status: Acute (6) Anxiety Status: Acute (7) Anemia Status: Acute - Respiratory Orders Smoking Cessation: Smoking cessation has been advised. For more information, call the [place] [employer] Quit Line at [phone]-XWUO-NOW. - Diet/Nutrition Diet/Nutrition: List: Diabetic diet - Services Needed Following services are medically necessary services: Home Health Aide, Physical Therapy, Occupational Therapy Home Care Orders: Follow-up with primary care physician within the next 7 days. Check glucose once daily. Diabetic diet. Complete 4 more days of cefdinir. Start Levemir 10 units at night with Humalog per sliding scale Sliding scale depending on glucose levels: 2 units 100-149 4 units 150-199 6 units 200-249 8 units 250-299 10 units 300-349 12 units 350-399 14 units >400 - Transfer Medications Prescriptions: Cefdinir [Omnicef] 300 mg PO BID #8 capsule Insulin DETEMIR [Levemir] 10 unit SQ HS 30 Days Insulin LISPRO [HumaLOG] 2 units SQ TIDAC 30 Days vial Home Medications: Cetirizine HCl [Zyrtec] 10 mg PO DAILY 10/12/14 [History] ClonazePAM [Klonopin] 0.5 mg PO Q6H PRN 10/12/14 [History] Gabapentin [Neurontin] 900 mg PO TID 10/12/14 [History] Montelukast [Singulair] 10 mg PO DAILY 10/12/14 [History] Oxygen 2 l NS HS 10/12/14 [History] Rosuvastatin [Crestor] 40 mg PO HS 10/12/14 [History] Zolpidem [Ambien] 10 mg PO HS 10/12/14 [History] Albuterol Neb [Proventil Neb] 2.5 mg IH Q4HR PRN 07/27/15 [History] Tizanidine HCl [Zanaflex] 8 mg PO QID 07/27/15 [History] Albuterol Sulfate [Ventolin Hfa] 2 puff IH Q4H PRN 07/14/16 [History] Mirtazapine [Remeron] 45 mg PO HS 07/14/16 [History] Quetiapine Fumarate [Seroquel] 400 mg PO HS 07/14/16 [History] Tiotropium [place] [Spiriva Respimat] 2 puff IH DAILY 07/14/16 [History] Paroxetine [Paxil] 20 mg PO DAILY 06/18/17 [History] Cefdinir [Omnicef] 300 mg PO BID #8 capsule 06/21/17 [Rx] Insulin DETEMIR [Levemir] 10 unit SQ HS 30 Days 06/21/17 [Rx] Insulin LISPRO [HumaLOG] 2 units SQ TIDAC 30 Days vial 06/21/17 [Rx] Allergies/Adverse Reactions: 3 Allergy/AdvReac Type Severity Reaction Status Date / Time baclofen Allergy Irritable Verified 06/18/17 20:20 escitalopram [From Lexapro] Allergy See Verified 06/18/17 20:20 Comments fluoxetine [From Prozac] Allergy Itching Verified 06/18/17 20:20 Sulfa (Sulfonamide Allergy See Verified 06/18/17 20:20 Antibiotics) Comments tramadol [From Ultram] Allergy Seizure Verified 06/18/17 20:20 trazodone Allergy Irritable Verified 06/18/17 20:20 venlafaxine [From Effexor] Allergy See Verified 06/18/17 20:20 Comments Certification: Further, I certify that my clinical findings support that this patient is homebound (i.e. absences from home require considerable and taxing effort and are for medical reasons or confucianism services or infrequently or short duration when for other reasons) because: Homebound Reason: Patient requires assistance of a person or device to safely leave home Attestation: My signature below is to certify that this patient is under my care and that I, or nurse practitioner, or a physician's plastic surgery assistant working with me, has a face-to -face encounter with this patient.
== END 2017-06-21 13:01 | disposition home health service (06) | DRG 140 ==
LOC: 2SOUTHHOLD 17:40 → EMEROO 17:40 → SUATTDRO 06-19 00:59 → 2SOUTHHOLD 06-19 01:11 → 2NENU 06-19 07:18
PROVIDERS: ADMIT Internal Medicine; ATTEND Internal Medicine